=== PATIENT | female | born 1985 | race Caucasian/White ===

== ENCOUNTER 2021-09-10 13:48 | Emergency (ER) | payer OTHER, SELFPAY ==
[2021-09-10 14:05] VITALS: BP 125/86; PULSE 86; RESP 18; TEMP 36.5; O2SAT 100
--- NOTE | 2021-09-10 14:27 | ED.GENADULT ---
HPI - General Adult General Chief complaint: Upper Respiratory Infection Stated complaint: sorethroat,bodyaches History of Present Illness HPI narrative: 36 y/o female. PMHx Migraine Dx. Presents to [facility] today with acute complaints of sore throat and body aches for the past 48 hours. No fevers. No neck pain, stiffness. No DYSON, focal weakness. No cough, dyspnea. Denies GI upset, N/V/D. Client reports no known ill contacts. She notes a history of Streptococcal sore throat, and always starts this way . Related Data Home Medications Medication Instructions Recorded Confirmed duloxetine 60 mg capsule,delayed 60 mg PO DAILY 09/10/21 09/10/21 release gabapentin 300 mg capsule 300 mg BID 09/10/21 09/10/21 propranolol 20 mg tablet 20 mg BID 09/10/21 09/10/21 rizatriptan 5 mg disintegrating 5 mg DIRECTED 09/10/21 09/10/21 tablet Allergies Allergy/AdvReac Type Severity Reaction Status Date / Time No Known Allergies Allergy Verified 09/10/21 14:25 Review of Systems Review of Systems: CONSTITUTIONAL: Denies fever, chills, sweats. EYES: Denies visual changes, redness, discharge. ENT: Denies rhinorrhea, congestion, otalgia. Positive sore throat. CARDIOVASCULAR: Denies chest pain, palpitations, edema. RESPIRATORY: Denies dyspnea, wheezing, cough GASTROINTESTINAL: Denies abdominal pain, nausea, vomiting, diarrhea. GENITOURINARY: Denies dysuria, hematuria, abnormal discharge SKIN: Denies rash or itching. MUSCULOSKELETAL: Denies acute back pain, joint pain, or myalgia. NEUROLOGIC: Denies numbness, or focal weakness. PSYCHIATRIC: Denies anxiety or depression. Exam Narrative: GENERAL: This is a well-nourished, well-developed adult, in no apparent distress. HEAD: normocephalic, atraumatic. EYES: PERRL. Sclera clear/white. EARS: External ears normal, auditory canals clear and without drainage, TMs normal. NOSE: External nose normal. Positive Rhinorrhea, no obstruction, nares patent. THROAT: Mucous membranes moist, posterior pharynx is erythematous w/early exudative changes. No swelling. NECK: Neck supple, non-tender without lymphadenopathy, masses or thyromegaly. CARDIOVASCULAR: Regular rate and rhythm without murmurs, gallops, or rubs. RESPIRATORY: Clear to auscultation. Breath sounds equal bilaterally. No wheezes, rales, or rhonchi. No stridor. Able to tolerate oral secretions. GASTROINTESTINAL: Abdomen soft, non-tender, nondistended. Bowel sounds are active. No guarding. SKIN: warm, intact with no suspicious lesions or rash, good texture and turgor. NEURO: Alert, active, and age appropriate. No focal neurologic deficits. EXTREMITIES: Negative. Course Course Level of Care: Express Care Visit Vital Signs Vital signs: Vital Signs Temperature 36.5 C 09/10/21 14:05 Pulse Rate 86 09/10/21 14:05 Respiratory Rate 18 09/10/21 14:05 Blood Pressure 125/86 09/10/21 14:05 Pulse Oximetry 100 09/10/21 14:05 Oxygen Delivery Room Air 09/10/21 14:05 Temperature 36.5 C 09/10/21 14:05 Pulse Rate 86 09/10/21 14:05 Respiratory Rate 18 09/10/21 14:05 Blood Pressure 125/86 09/10/21 14:05 Pulse Oximetry 100 09/10/21 14:05 Oxygen Delivery Room Air 09/10/21 14:05 Medical Decision Making Differential Diagnosis Differential Diagnosis: Differential Diagnosis: Consideration of the following conditions may be warranted for the presenting problem, they are not final diagnoses: upper respiratory infection, otitis media, sinusitis, RSV viral infection, bronchitis, pharyngitis, Streptococcal sore throat, COVID-19, and other. Vital Signs Vital Signs: Vital Signs Temperature 36.5 C 09/10/21 14:05 Pulse Rate 86 09/10/21 14:05 Respiratory Rate 18 09/10/21 14:05 Blood Pressure 125/86 09/10/21 14:05 Pulse Oximetry 100 09/10/21 14:05 Oxygen Delivery Room Air 09/10/21 14:05 Temperature 36.5 C 09/10/21 14:05 Pulse Rate 86 09/10/21 14:05 Res
== END 2021-09-10 14:30 | disposition home or self-care (01) ==
PROVIDERS: Emergency Provider Nurse Practitioner Adult Health
DX: J02.9 Acute pharyngitis, unspecified (principal)
CPT/HCPCS: 99203; G0463

== ENCOUNTER 2023-08-02 10:30 | Emergency (ER) | payer OTHER, SELFPAY ==
--- NOTE | 2023-08-02 10:32 | ED.FEMALEGU ---
HPI - Female Genitourinary General Chief complaint: Urogenital-Female Stated complaint: UTI Time Seen by Provider: 08/02/23 10:31 Source: patient Mode of arrival: ambulatory Limitations: no limitations History of Present Illness HPI Narrative: Patient is a 38-year-old female presents with urinary urgency,frequency, pressure and burning urination for 2 days. Patient has taken azo. Denies any fever, chills, nausea, vomiting, diarrhea, low back pain. Patient reports frequent UTIs MD elicited complaint: dysuria Related Data Home Medications Medication Instructions Recorded Confirmed atogepant 60 mg tablet (Qulipta) 60 mg PO DAILY 08/02/23 08/02/23 atomoxetine 60 mg capsule 60 mg PO DAILY 08/02/23 08/02/23 estradiol 1.25 mg/1.25 gram (0.1 1 packet transdermal DAILY 08/02/23 08/02/23 %) transdermal gel packet (Divigel) fluvoxamine 150 mg 150 mg PO DAILY 08/02/23 08/02/23 capsule,extended release 24 hr gabapentin 300 mg capsule 300 mg PO TID 08/02/23 08/02/23 pramipexole 0.5 mg tablet 0.5 mg PO DAILY 08/02/23 08/02/23 sildenafil (pulm.hypertension) 20 20 mg PO DAILY 08/02/23 08/02/23 mg tablet Allergies Allergy/AdvReac Type Severity Reaction Status Date / Time No Known Allergies Allergy Verified 08/02/23 10:32 Review of Systems Review of Systems: All systems reviewed & are unremarkable except as noted in HPI and below Constitutional: Constitutional: Denies chills, Denies fever(s), Denies headache(s), Denies malaise and Denies weakness Eyes: Eyes: Denies change in vision, Denies eye discharge and Denies irritation ENT: Denies otalgia, Denies headache(s), Denies nasal congestion, Denies nasal discharge, Denies sinus pain and Denies sore throat Cardiovascular: Cardiovascular: Denies chest pain, Denies edema, Denies palpitations and Denies dyspnea Respiratory: Respiratory: Denies cough and Denies dyspnea Gastrointestinal: Gastrointestinal: Denies abdominal pain, Denies diarrhea, Denies nausea and Denies vomiting Genitourinary: Genitourinary: Denies hematuria, Reports nocturia, Reports dysuria, Denies flank pain and Reports urinary urgency Musculoskeletal: Musculoskeletal: Denies back pain and Denies numbness Integumentary/Breasts: Skin/Breast: Denies pruritus and Denies rash Neurologic: Denies headache(s), Denies numbness and Denies weakness Psychiatric: Psychiatric: Reports no additional psychiatric complaints Endocrine: Endocrine: Denies palpitations PMFSH Comments At time of signature, agree with nursing past medical, surgical, social and family history. There is no relevant family history pertinent to the presenting complaint. Exam Const: General: cooperative, healthy appearing, comfortable, no acute distress and well nourished Nutritional Appearance: well nourished Orientation/consciousness: patient oriented x3 HENMT: Head: normocephalic and atraumatic Ears: external ears normal Face/Nose/Sinus: Normal external nose present, Normal nares present and normal facial exam Face and sinus: normal facial exam Eyes: General: appearance normal, both eyes and all related structures Pupils: Equal, round and reactive pupils present EOM: EOMs intact bilaterally Neck: Neck: normal visual inspection, full ROM and supple Chest: Chest palpation & inspection: normal inspection of the chest Resp: Effort & Inspection: normal respiratory effort and able to speak in complete sentences Cardio: Rate: regular rate Rhythm: regular rhythm GI: Inspection: normal to inspection GI Palp: No abdominal tenderness and Yes Soft to palpation : General: Yes no CVA tenderness Back/Spine/Pelvis: Back: no CVA tenderness Skin: General skin exam: normal color and no rashes or lesions noted Neuro: General: patient oriented x3 and moves all extremities Cranial nerves: Yes Equal, round and reactive pupils present Extrem: General: normal to inspection and full ROM Psych: Appearance: grossly normal and well kempt Co
[2023-08-02 10:47] VITALS: BP 117/75; PULSE 65; RESP 16; TEMP 36.5; O2SAT 100
== END 2023-08-02 11:04 | disposition home or self-care (01) ==
PROVIDERS: Emergency Provider Nurse Practitioner Family
DX: N30.00 Acute cystitis without hematuria (principal); B96.20 Unspecified Escherichia coli [E. coli] as the cause of diseases classified elsewhere; F90.9 Attention-deficit hyperactivity disorder, unspecified type; G25.81 Restless legs syndrome; I73.00 Raynaud's syndrome without gangrene; Z98.84 Bariatric surgery status; Z86.16 Personal history of COVID-19
CPT/HCPCS: 81003; 87077; 87086; 87088; 87186; 99213; G0463

== ENCOUNTER 2023-08-10 12:53 | Emergency (ER) | payer OTHER, SELFPAY ==
--- NOTE | 2023-08-10 13:08 | ED.GENADULT ---
HPI - General Adult General Chief complaint: Urogenital-Female Stated complaint: yeast infection Time Seen by Provider: 08/10/23 13:08 Source: patient Mode of arrival: ambulatory Limitations: no limitations History of Present Illness HPI narrative: this 38-year-old female patient presents to the [facility] care with complaints itching, burning irritation and white vaginal discharge that started yesterday. Patient states the white vaginal discharge started this morning. Patient states she has been on Augmentin for a UTI and states that she is very sensitive to antibiotics and typically always gets vaginal yeast infections with antibiotics specifically more so with the Augmentin. Patient states that she only has 1 day left of antibiotics. Patient states she has no concerns for STIs at this time. Related Data Home Medications Medication Instructions Recorded Confirmed atogepant 60 mg tablet (Qulipta) 60 mg PO DAILY 08/02/23 08/10/23 atomoxetine 60 mg capsule 60 mg PO DAILY 08/02/23 08/10/23 estradiol 1.25 mg/1.25 gram (0.1 1 packet transdermal DAILY 08/02/23 08/10/23 %) transdermal gel packet (Divigel) fluvoxamine 150 mg 150 mg PO DAILY 08/02/23 08/10/23 capsule,extended release 24 hr gabapentin 300 mg capsule 300 mg PO TID 08/02/23 08/10/23 levonorgestrel 21 mcg/24 hr (up to See Rx Instructions .Route .COMPLEX 08/02/23 08/10/23 8 years) 52 mg intrauterine device (Mirena) pramipexole 0.5 mg tablet 0.5 mg PO DAILY 08/02/23 08/10/23 sildenafil (pulm.hypertension) 20 20 mg PO DAILY 08/02/23 08/10/23 mg tablet Allergies Allergy/AdvReac Type Severity Reaction Status Date / Time No Known Allergies Allergy Verified 08/10/23 13:21 Review of Systems Review of Systems: CONSTITUTIONAL: Denies fever, chills, or sweats. EYES: Denies visual changes, redness, or discharge. ENT: Denies rhinorrhea, congestion, sore throat, or otalgia. CARDIOVASCULAR: Denies chest pain, palpitations, or edema. RESPIRATORY: Denies cough or dyspnea. GASTROINTESTINAL: Denies abdominal pain, nausea, vomiting, or diarrhea. GENITOURINARY: Denies dysuria or hematuria. Positive burning, irritation, itching and white vaginal discharge x2 days SKIN: Denies rash or itching. MUSCULOSKELETAL: Denies back pain, joint pain, or myalgia. NEUROLOGIC: Denies headache, numbness, or weakness. PSYCHIATRIC: Denies anxiety or depression. PMFSH Comments At the time of my signature I agree with nursing past medical history, surgical, social, and family history. There is no relevant family history pertinent to the presenting complaint. Exam Narrative: GENERAL: Well-appearing, well-nourished, and in no acute distress. HEAD: Normocephalic, atraumatic. EYES: PERRLA and EOMI. ENT: Nares clear, no rhinorrhea or epistaxis. Mucous membranes moist. NECK: Supple. No lymphadenopathy CHEST: Clear to auscultation. No respiratory distress. HEART: Regular rate and rhythm. No murmur heard. Normal peripheral pulses. ABDOMEN: Soft, nontender, nondistended, normal active bowel sounds. no CVA tenderness on percussion EXTREMITIES: Normal range of motion. No edema. SKIN: Warm, dry, no rash. NEURO: No focal deficits. Alert and oriented x3. Course Course Level of Care: Express Care Visit Vital Signs Vital signs: Vital Signs Temperature 36.2 C L 08/10/23 13:22 Pulse Rate 84 08/10/23 13:22 Respiratory Rate 16 08/10/23 13:22 Blood Pressure 104/71 08/10/23 13:22 Pulse Oximetry 100 08/10/23 13:22 Oxygen Delivery Room Air 08/10/23 13:22 Temperature 36.2 C L 08/10/23 13:22 Pulse Rate 84 08/10/23 13:22 Respiratory Rate 16 08/10/23 13:22 Blood Pressure 104/71 08/10/23 13:22 Pulse Oximetry 100 08/10/23 13:22 Oxygen Delivery Room Air 08/10/23 13:22 Medical Decision Making MDM Narrative Medical decision making narrative: plan care patient is discharged home with fluconazole. Discussed with patient that she can take the
[2023-08-10 13:22] VITALS: BP 104/71; PULSE 84; RESP 16; TEMP 36.2; O2SAT 100
== END 2023-08-10 13:38 | disposition home or self-care (01) ==
PROVIDERS: Emergency Provider Nurse Practitioner Family; PCP Family Medicine
DX: B37.31 Acute candidiasis of vulva and vagina (principal); G25.81 Restless legs syndrome; I73.00 Raynaud's syndrome without gangrene; Z98.84 Bariatric surgery status; Z86.16 Personal history of COVID-19
CPT/HCPCS: 99213; G0463

== ENCOUNTER 2025-01-27 15:41 | Emergency (ER) | payer OTHER, SELFPAY ==
--- OUTSIDE RECORDS SUMMARY | 2023-08-03 15:30 | XMS_ITS ---
Author Organization [facility] [employer] [place] ([address]) Address [address] [place] [address] Care Team Providers Care Engineering Aid Name Role Phone Gabriel Desai Primary Care Provider UnavailDr. Krish Martin Unavailable [phone] Isaiah Donohue Unavailable Unavailable ZZ-M[facility], Provider Unavailable Unavailab le [facility] Encounter Medications Medication SIG (Take, Route, Frequency, Duration) Notes Start Date End Date Status Ubrelvy 100 MG 1 tab(s) orally 2 times a day; Duration: 30 days 07/24/2023 Active Qulipta 60 MG 1 tab(s) orally once a day; Duration: 30 days 05/29/2023 Active Pramipexole Dihydrochloride 0.5 MG 1 tab(s) orally nightly; Duration: 30 days 05/07/2023 Active Gabapentin 300 MG 1 in am, 2 in pm orally as directed Active Naltrexone HCl 50 MG 1.25 mg daily orall y once a day Active Viagra 25 MG 1 tab(s) orally once a day Active Strattera 60 MG 1 cap(s) orally once a day (in the morning) Active fluvoxaMINE Maleate 150 MG 1 CAP(S) ORALLY ONCE A DAY (AT BEDTIME) *Please review and pick correct strength-formulat ion from [employer] options. If intended option is not shown, discontinue and re-order from Quick Search* Active Cyclobenzaprine HCl 10 MG 1 tab(s) orally 3 times a day Active Progesterone 100 MG 1 INS intravaginally 3 times a day Active DIVIGEL 1.25 MG/PACKET 1.25 MG/1.25 G (0.1%) 1 EA TRANSDERMALLY ONCE A DAY *Please review for potential replacement for e-prescription and drug interaction check* Active Methocarbamol 500 MG 2 tab(s) orally 4 times a day Active Rizatriptan Benzoate 10 MG 1 tab(s) orally once a day Active Encounters Encounter Location Date Provider Diagnosis [address] [place] [address] 08/03/2023 Provider ZZ-Migration Plan Of Treatment Medication Medication Name Sig Start Date Stop Date Notes Ubrelvy 100 MG 1 tab(s) orally 2 ti mes a day; Duration: 30 days 07/24/2023 Progress Notes * Fabián MACKEYOB:[birth year] (39 yo F)Acc No.[id number]:08/03/2023 Patient: Jordan Livia CHILD Provider: Christopher clemons Migration :1985 A ge:38 Y S ex:Female Date:08/03/2023 Address:[address] [place] [address], [facility] Pcp:Gabriel Desai Subjective: * Chief Complaints: * 1 . [facility]. * Medical History: * Medications: T aking Rizatriptan Benzoate 10 MG Tablet 1 tab(s) orally once a day , Taking Methocarbamol 500 MG Tablet 2 tab(s) orally 4 times a day , Taking DIVIGEL 1.25 MG/PACKET 1.25 MG/1.25 G (0.1%) GEL 1 EA TRANSDERMALLY ONCE A DAY , Notes to Pharmacist: *Please review for potential replacement for e-prescription and drug interaction check*, Taking Viagra 25 MG Tablet 1 tab(s) orally once a day , Taking Progesterone 100 MG Insert 1 INS intravaginally 3 times a day , Taking Cyclobenzaprine HCl 10 MG Tablet 1 tab(s) orally 3 times a day , Taking fluvoxaMINE Maleate 150 MG CAPSULE, EXTENDED RELEASE 1 CAP(S) ORALLY ONCE A DAY (AT BEDTIME) , Notes to Pharmacist: *[facility]. If intended option is not shown, discontinue and re-order from Quick Search*, Taking Strattera 60 MG Capsule 1 cap(s) orally once a day (in the morning) , Taking Naltrexone HCl 50 MG Tablet 1.25 mg daily orally once a day , Taking Gabapentin 300 MG Capsule 1 in am, 2 in pm orally as directed , Taking Pramipexole Dihydrochloride 0.5 MG Tablet 1 tab(s) orally nightly , Taking Qulipta 60 MG Tablet 1 tab(s) orally once a day Objective: * Vitals: Assessment: Plan: * Treatment: * Billing Information: * Visit Code: * Procedure Codes: * Electronic signature of Tenisha SHETH-Migration on 01/27/2025 at 08:43 PM OUTGOING INSPECTOR Sign off status: Pending * Provider: Christopher clemons Migration Date: 0 08/03/2023 Generated for Brendon broussard/Nupur/Bao on: 1 03/30/2024 08:43 PM OUTGOING INSPECTOR
--- OUTSIDE RECORDS SUMMARY | 2023-08-27 11:30 | XMS_ITS ---
Author Organization [facility] [place] ([address]) Address [address] [place] [address] Care Team Providers Care Power Plant Technician Name Role Phone Gabriel Desai Primary Care Provider Dr. Krish Kirby Unavailable [phone] Isaiah Donohue Unavailable Unavailable REASON FOR VISIT Botox Only Encounters Encounter Location Date Provider Diagnosis [address] [address] 08/27/2023 Krish Diaz Plan Of Treatment No Information Progress Notes * Fabián MACKEYOB:[birth year] (39 yo F)Acc No.[id number]:08/27/2023 Botox Only Patient: Livia LYNN Provider: Devan Diaz MD :1985 A ge:38 Y S ex:Female Date:08/27/2023 Address:[address] [place] [address], [facility] Pcp:Gabriel Desai Subjective: * Chief Complaints: * 1 . Botox Only. * Medical History: Objective: * Vitals: Assessment: Plan: * Treatment: * Billing Information: * Visit Code: * Procedure Codes: * Electronic signature of Dr. Krish Diaz MD on 01/27/2025 at 08:39 PM CONTINUOUS PICKLING LINE PICKLER HELPER Sign off status: Pending * Provider: Devan Diaz MD Date: 0 08/27/2023 Generated for Brendon broussard/Nupur/Jessicaitting on: 1 03/30/2024 08:39 PM CONTINUOUS PICKLING LINE PICKLER HELPER
--- OUTSIDE RECORDS SUMMARY | 2024-02-25 11:30 | XMS_ITS ---
Author Organization [facility] ([address]) Address [address] [place] [address] Care Team Providers Care Diamond Sorter Name Role Phone Gabriel Desai Primary Care Provider Dr. Krish Kirby Unavailable [phone] Isaiah Donohue Unavailable Unavailable Kalpana Tabares Unavailable [phone] REASON FOR VISIT Botox F/U Encounters Encounter Location Date Provider Diagnosis [address] [address] 02/25/2024 Kalpana Tabares Plan Of Treatment No Information Progress Notes * GRACEArethaFabián DORSEYOB:[birth year] (39 yo F)Acc No.[id number]:02/25/2024 Progress Notes Patient: Jordan HOOVERLivia DORSEY Provider: Michael Tabares APRN :1985 A ge:39 Y S ex:Female Date:02/25/2024 Address:[address] [place] [address], [facility] Pcp:Gabriel Desai Subjective: * Chief Complaints: * 1 . Botox F/U. * Medical History: Objective: * Vitals: Assessment: Plan: * Treatment: * Billing Information: * Visit Code: * Procedure Codes: * Electronic signature of CHERYL Rojas on 01/27/2025 at 08:38 PM FORKLIFT WHEEL LOADER Sign off status: Pending * Provider: Michael Tabares APRN Date: 0 02/25/2024 Generated for Brendon broussard/Nupur/Bao on: 1 03/30/2024 08:38 PM FORKLIFT WHEEL LOADER
--- OUTSIDE RECORDS SUMMARY | 2024-03-03 11:30 | XMS_ITS ---
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 Krish Martin Unavailable [phone] Isaiah Donohue Unavailable Unavailable Kalpana Tabares Unavailable [phone] Allergies No Known Allergies REASON FOR VISIT Botox BB Only Medications Medication SIG (Take, Route, Frequency, Duration) Notes Start Date End Date Status Methocarbamol 500 MG 2 tab(s) orally 4 times a day Active DIVIGEL 1.25 MG/PACKET 1.25 MG/1.25 G (0.1%) 1 EA TRANSDERMALLY ONCE A DAY *Please review for potential replacement for e-prescription and drug interaction check* Active Viagra 25 MG 1 tab(s) orally once a day Active Progesterone 100 MG 1 INS intravaginally 3 times a day Active Cyclobenzaprine HCl 10 MG 1 tab(s) orally 3 times a day Active Rizatriptan Benzoate 10 MG 1 tab(s) orally once a day Active GABAPENTIN 300 mg 1 in am, 2 in pm orally as directed Active PRAMIPEXOLE DIHYDROCHLORIDE 0.5 mg 1 tab(s) orally nightly; Duration: 30 days 05/07/2023 Active QULIPTA 60 mg 1 tab(s) orally once a day; Duration: 30 days 05/29/2023 Active UBRELVY 100 mg 1 tab(s) orally 2 times a day; Duration: 30 days As needed for migraine 07/24/2023 Active NALTREXONE 50 mg 1.25 mg daily orally once a day Active PROGESTERONE 100 mg 1 INS intravaginally 3 times a day Active CYCLOBENZAPRINE 10 mg 1 tab(s) orally 3 times a day Active FLUVOXAMINE 150 mg 1 cap(s) orally once a day (at bedtime) Active STRATTERA 60 mg 1 cap(s) orally once a day (in the morning) Active VIAGRA 25 mg 1 tab(s) orally once a day Active RIZATRIPTAN 10 mg 1 tab(s) orally once a day Active Qulipta 60 MG 1 tab(s) orally once a day; Duration: 30 days 05/29/2023 Active Ondansetron 4 MG 1 tab Orally Once a day; Duration: 30 days As needed 08/27/2023 Active METHOCARBAMOL 500 mg 2 tab(s) orally 4 times a day Active Gabapentin 300 MG 1 in am, 2 in pm orally as directed Active Pramipexole Dihydrochloride 0.5 MG 1 tab(s) orally nightly; Duration: 30 days 05/07/2023 Active Ubrelvy 100 MG 1 tab(s) orally 2 times a day; Duration: 30 days 07/24/2023 Active Strattera 60 MG 1 cap(s) orally once a day (in the morning) Active Naltrexone HCl 50 MG 1.25 mg daily orall y once a day Active fluvoxaMINE Maleate 150 MG 1 CAP(S) ORALLY ONCE A DAY (AT BEDTIME) *Please review and pick correct strength-formulat ion from elenian options. If intended option is not shown, discontinue and re-order from Quick Search* Active Social History Tobacco Use: Social History Observation Description Date Details (start date - stop date) Former Smoker NA - NA Smoking Smart Form: Question Answer Notes Are you a: former smoker Additional Findings:Tobacco Non-User Ex-moderate cigarette smoker (10-19/day) Problems Problem Type SNOMED Code ICD Code Onset Dates Problem Status W/U Status Risk Notes Problem Migraine with aura (3044193) Migraine with aura, not intractable, without status migrainosus (G43.109) Active confirmed Problem Chronic migraine without aura, non-refractor y (disorder) ([id number] 100) Migraine without aura, not intractable, without status migrainosus (G43.009) Active confirmed Encounters Encounter Location Date Provider Diagnosis [facility] [address] [place] [address] 03/03/2024 Kalpana Tabares Chronic migraine without aura, not intractable, without status migrainosus G43.709 Assessments Encounter Date Diagnosis (ICD Code) Assessment Notes Treatment Notes Treatment Clinical Notes Section Notes 03/03/2024 Chronic migraine without aura, not intractable, without status migrainosus (ICD-10 - G43.709) Plan Of Treatment Next Appt Details Follow Up: 3 Months, Reason: Evaluation and Management. Toxin injection Progress Notes * Say MACKEYleDOB:[birth year] (39 yo F)Acc No.[id number]:03/03/2024 Progress Notes Patient: Livia LYNN Provider: Michael Tabares APRN :1985 A ge:39 Y S ex:Female Date:03/03/2024 Address:[address] [place] [address], [facility] Pcp:Gabriel Desai Subjective: * Chief Complaints: * 1 . Botox BB Only. * HPI: * Introduction: HPI: N ayannaroberto Key, who presented for Botox injection. * Initial History: INITIAL VISIT HISTORY: She is a 38 year old woman with a history obesity s/p bariatric surgery, h/o premature ovarian failure, chronic TMJ, chronic migraine. Headache History: -Headache Onset: Mid-20s. -Headache Description: Prodrome: Worsening of tinnitus, scalp tingling. Aura: Sees spots in her periphery prior to migraine. Headache phase: Bilateral temporal, rarely unilateral, throbbing pain up to severe pain, worsened with movement/activity with preference to lie down, associated with light sensitivity, associated with nausea, associated with blurry vision, can last hours to all day or even > 24 hours-He -Headache Triggers: Stress, weather changes (barometric pressure change), hormone changes (e.g. menstrual cycle), under sleeping, bright or flashing lights -Headache Frequency: The patient is currently experiencing 20 Headache days/month and 20 Migraine days/month. She has had this frequency for the last 3 months, prior to this was about 8-10 days/month with headache. * Previous Impression & Plan: Notes P revious Diagnoses: 1 . Chronic migraine without aura, not intractable, without status migrainosus - G43.709 (Primary) 2 . Drug-induced headache, not elsewhere classified, not intractable - G44.40 3 . Restless legs syndrome - G25.81 P revious Recommendations: 1 . Abortive: Ubrelvy 100 mg. Preventive: Samples of Qulipta 60 mg. Recommend treatment with botulinum toxin for preventive therapy. Recommend adding masseter injections. PA for Xeomin. Patient meets criteria for chronic migraine with > 15 headache days/month and > 8 migraine days per month, and has failed > 2 standard preventives and is therefore a good candidate for treatment with botulinum toxin. 2 . Educated patient regarding medication overuse headaches. Advised to avoid taking NSAIDs or acetaminophen > 15 days/month, triptans or DHE > 10 days/month, butalbital > 10 days/month to avoid rebound headaches. 3 . Continue iron supplementation. Continue gabapentin. Stop ropinirole, change to pramipexole 0.5 mg nightly.. * Interval History: Notes P harmacologic Treatment: - Current abortive therapy: Ubrelvy 100 mg (reliably effective) - Previous failed abortive therapy: Rizatriptan 10 mg (used to work, now only partially effective and not reliable), Sumatriptan (inadequate effect; side effects) - Current preventive therapy: Botox, Qulipta, Gabapentin (on for RLS; has not helped migraines). - Previous failed preventive therapy: Emgality (took for 1 year; initially helped, then stopped working), Topiramate (took for 6 months; inadequate effect and side effects), Propranolol (side effects; low blood pressure); Venlafaxine (ineffective, took for > 2 months), Duloxetine (ineffective, took > 2 months), Botox (single injection, had temporary ptosis, and didn't want to continue treatment; so had inadequate trial) - Medication overuse: Not present - Other modalities: Acupressure/acupuncture, Physical Therapy, Chiropractic H eadache Frequency: I nitial/baseline headache/migraine days/month:30/30 L ast visit headache/migraine days/month:15 (less intense and of less duration than before on these days)/4 (on Qulipta+Botox) C urrent headache/migraine days/month: / H eadache Scales: H IT-6: Current score: . Prior score: 65 I nterval History: L ast visit was on 11/19/2023 for Botox injection.. * Headache: Last injection on 11/19/23: Procerus 5 Units, Land Acquisition Manager (Left) 5 Units, Land Acquisition Manager (Right) 5 Units, Frontalis (Left) 12.5 Units, Frontalis (Right) 12.5 Units, Temporalis (Left) 25 Units, Temporalis (Right) 25 Units, Occipitalis (Left) 20 Units, Occipitalis (Right) 20 Units, Cervical Paraspinal (Left) 10 Units, Cervical Paraspinal (Right) 10 Units, Trapezius (Left) 15 Units, Trapezius (Right) 15 Units, Masseter (Left) 10 Units, Masseter (Right) 10 Units. * ROS: A LLERGY: runny nose Y es. s cratchy throat Y es. i tchy eyes Y es. e ar fullness Y es. s inus congestion Y es. D enies all N o.? S PECIAL SENSES: cataracts N o. g laucoma N o. l oss of hearing?No. i tching in ears N o. r inging in ears Y es. l oss of balance Y es.?loss of smell N o. d ry eyes N o. e xcessive tearing Y es. i tching eyes Y es. l oss of taste N o. c onjunctivitis N o. e ar infections N o.? C ONSTITUTIONAL: night sweats Y es. w eight gain N o. l oss of appetite Y es. f ever N o. w eakness Y es. w eight loss N o. f atigue?Yes. E NT: cold N o. c ough N o. e pistaxis N o. h earing loss N o. c hange in voice N o. s ore throat Y es. r inging in ears?Yes. s inus pain Y es. R ESPIRATORY: shortness of breath N o. c hest pain N o. c hest congestion Y es. c ough Y es. O PHTHALMOLOGY: itching Y es. s ensitivity to light Y es. d ischarge N o. w atering Y es. s welling of the eyelids Y es. r edness Y es.?diminished vision Y es. e ye irritation Y es. d rainage from eyes N o. blurring of vision Y es. s easonal eye sx N o. l oss of vision N o. E NDOCRINOLOGY: fatigue Y es. p olydipsia N o. p olyuria N o. w eight loss N o. s leep disturbance Y es. c old intolerance Y es. h eat intolerance N o. d iabetes N o. C ARDIOLOGY: dizziness Y es. c hest pain N o. p alpitations?No. l eg edema N o. s hortness of breath N o. G ASTROENTEROLOGY: nausea Y es. i ndigestion N o. h emorrhoids?No. v omiting N o. d ysphagia N o. a bdominal pain Y es. d iarrhea?No. c onstipation N o. b lood in stool N o. U ROLOGY: difficulty urinating N o. b lood in urine N o. f requent urination N o. u rinary incontinence N o. v oiding dysfunction N o.?recurrent UTI Y es. D ERMATOLOGY: rash N o. m ole Y es. l umps N o. d ry or sensitive skin Y es. h kizzy (urticaria) Y es. a cne N o. s kin cancer?No. N EUROLOGY: headache Y es. t ingling numbness Y es. s eizures N o. i nsomnia Y es. m gita loss N o. d izziness Y es. g ait abnormality N o. H EMATOLOGY/LYMPH: Positive for n one. M USCULOSKELETAL: gout N o. j oint stiffness Y es. l eg cramps?No. j oint pain Y es. j oint swelling N o. s ciatica Y es. o steoporosis N o. f racture Y es. c arpal tunnel Y es. P SYCHOLOGY: depression Y es. h igh stress level Y es. s leep disturbances Y es. s uicidal ideation N o. e ating disorder Y es. m ental or physical abuse Y es. a nxiety Y es. F EMALE REPRODUCTIVE: Are you ? N o. A re you planning on a future pregancy? N o. h eavy periods N o. s exually active Y es. i nfertility Y es. f requent yeat infections N o. p elvic pain N o. b reast pain N o. n ipple discharge N o. a bnormal vaginal discharge N o. h ot flashes Y es. ? * Medical History: M igraine, Depression, Obesity, Premature ovarian failure, TMJ, Lumbar DDD. * Surgical History: G astric bypass 09/29/2021, Jaw arthrocentesis 05/19/2022, Jaw arthrocentesis 02/18/2021, Jaw arthrocentesis 09/18/2020, Knee meniscus repair 01/07/2009, Tonsil and andoids 04/18/2006, [place] teeth removal 04/18/2005. 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 * Family History: F ather: Yes. M other: Yes. P aternal Grand Father: Yes. P aternal Grand Mother: Yes. M aternal Grand Father: No. M aternal Grand Mother: Yes. P aternal uncle: Yes. S iblings: Yes. C hildren: Yes. * Social History: M arital Status What is your marital status? m arried A lcohol Screening Do you ever drink alcoholic beverages? Y es Number of drinks per occasion: 1 Frequency? W eekly C affeine: Yes. S moking Have you ever smoked tobacco: f ormer smoker Additional Findings: Tobacco Non-User E x-heavy cigarette smoker (20-30/day) How old were you when you started smoking? 1 2 How old were you when you quit smoking? 3 0 How many cigarettes a day did you smoke? l ess than 5 Are you a : f ormer smoker S moking Smart Form Are you a: f ormer smoker Additional Findings:Tobacco Non-User E x-moderate cigarette smoker (10-19/day) R ecreational drug use Have you ever used recreational drugs? Y es What kind of drugs? m arijuana D etails on consumption of certain products? Do you regularly consume products with aspartame; Equal or NutraSweet? Y es Do you regularly consume products with artificial coloring??Yes Have you ever noticed worsening of your rash with these food items? N o E xercise What kind(s) of exercise do you perform regularly? w alking,yoga How often do you perform this exercise? w eekly A re any of the following personal care products containing fragrance, dye or preservatives used regularly? Shampoo: Y es Conditioner: Y es Soap: N o Laundry Detergent: N o Fabric Softener: N o Deodorant: Y es Perfume, cologne, after shave: N o Air freshners or other scented products: Y es Hair coloring dyes or rinses: Y es Other: N o O ccupation Are you currenly employed? N o Have you had any job with high exposure to fumes, chemicals, dust or other noxious substances? N o Are you currently a student? Y es How much school have you missed due to breathing difficulty within the past year? 1 or 2 days Please describe the effect of your illness on your school performance: p oor concentration,poor performance E nvironmental History Living environment: p rivate home Where is the home located? [place] Age of home: 3 0 How long have you lived there? 2 -4 years How many people live in the home? 9 H ome description Basement: Y es Any water damage in basement? N o Smokers in the home? N o Smokers outside the home? N o Air Conditioning? Y es Central Air? Y es Forced air heating? Y es Gas or electric? g as Fireplace? Y es Used how often? w inter months only Wood burning stove? N o Do you vacuum the home? Y es Air purification systems? Y es Is it a HEPA (high-efficiency particulate air filter)? Y es Ionizer on air purification system? Y es Pillow and mattress dust-proof encasings? N o Do you use a humidifier? Y es Whole house or room? r oom humidifier Does it have a humidistat? Y es Is it used year-round, seasonal, or as needed? a s needed Is the humidifier cleaned regularly? Y es Do you own any pets? Y es What kind(s)? (click all that apply) c ats,dog,fish,guinea pig,rat Where do your pets sleep? b edroom Fabric softeners used? Y es Plants in the home? Y es How many? 2 0 Where are they kept? y our room,kitchen,outside Is there carpeting in your bedroom? Y es Age of carpet? 3 Do you have bfea-aa-cksp carpeting? Y es What is the age of your carpeting? 3 What is the age of your mattress (years)? 2 What material(s) are used to manufacture your bedding and pillow? s ynthetic What is the age of your pillow (years)? 2 What material are your bedding items made of? s ynthetic,natural fiber (e.g. cotton) Do you sleep with quilts or blankets or a duvet? Y es What material? n atural fiber (e.g. cotton) How many cats? 3 How many dogs? 1 How many fish? 5 How many guinea pigs? 2 How many rats? 4 * Medications: T manpreet RIZATRIPTAN 10 mg tablet 1 tab(s) orally once a day , Taking METHOCARBAMOL 500 mg tablet 2 tab(s) orally 4 times a day , Taking VIAGRA 25 mg tablet 1 tab(s) orally once a day , Taking PROGESTERONE 100 mg insert 1 INS intravaginally 3 times a day , Taking CYCLOBENZAPRINE 10 mg tablet 1 tab(s) orally 3 times a day , Taking FLUVOXAMINE 150 mg capsule, extended release 1 cap(s) orally once a day (at bedtime) , Taking STRATTERA 60 mg capsule 1 cap(s) orally once a day (in the morning) , Taking NALTREXONE 50 mg tablet 1.25 mg daily orally once a day , Taking GABAPENTIN 300 mg capsule 1 in am, 2 in pm orally as directed , Taking PRAMIPEXOLE DIHYDROCHLORIDE 0.5 mg tablet 1 tab(s) orally nightly , Taking QULIPTA 60 mg tablet 1 tab(s) orally once a day , Taking UBRELVY 100 mg tablet 1 tab(s) orally 2 times a day As needed for migraine, Taking Rizatriptan Benzoate 10 MG Tablet 1 tab(s) [...] *Please review and pick correct strength-formulation from Win[employer]er options. If intended option is not shown, [...] Tablet 1 tab(s) orally nightly , Taking Ubrelvy 100 MG Tablet 1 tab(s) orally 2 times a day , Taking Qulipta 60 MG Tablet 1 tab(s) orally once a day , Taking Ondansetron 4 MG Tablet Disintegrating 1 tab Orally Once a day As needed * Allergies: N .K.D.A. Objective: * Vitals: * Examination: G eneral examination: General appearance: P leasant, well-developed, no distress.? HEENT: P upils equal, round and reactive to light. No conjunctival injection. No tenderness to palpation over the maxillary sinuses. No turbinate hypertrophy. Tympanic membranes appear normal. No oral lesions. No tenderness over the occipital notch bilaterally. Oral cavity: N ormal, no lesions. Neck, thyroid : S upple, non-tender, no anterior cervical lymphadenopathy. Breasts : N ot performed. Heart: R RR, S1-S2, no murmurs, no rubs, no gallops. Lungs: C lear to auscultation and percussion in all lung boswell. Abdomen: S oft, NT/ND, normal active bowel sounds. Neurologic exam: A lert and oriented x 4. Fluent speech. Intact recall, fund of knowledge. Appropriate affect. PERRL. EOMI without nystagmus. No visual field cut. Facial sensation intact to light touch and pinprick in bilateral V1/V2/V3. Facial movements normal and symmetric. Hearing intact to finger rub bilaterally. Palate symmetrically upgoing. Tongue midline. Motor 5/5 strength in all extremities. Reflexes 2+/2 and symmetric in all extremities. Bilateral flexor plantar responses. Sensory exam intact to light touch, pinprick, vibration, and proprioception in all extremities. Cerebellar testing no ataxia or dysmetria. Gait normal, negative Romberg, intact tandem. Skin: N ormal, no rash, urticaria, angioedema. Peripheral pulses: n ormal (2+) bilaterally. Back: N o cervical or periscapular trigger points. Normal cervical and lumbar ROM. Extremities: N ormal ROM, no clubbing, no cyanosis, no edema. Genitalia: N ot performed. Assessment: * Assessment: 1. C hronic migraine without aura, not intractable, without status migrainosus - G43.709 (Primary) Plan: * Treatment: * Procedure Codes: 6 4615 CHEMODENERV MUSC MIGRAINE, J0585 BOTULINUM TOXIN TYPE A PER UNIT, J0585 BOTULINUM TOXIN TYPE A PER UNIT, Modifiers: HANNAH , 11467 PT-FOCUSED HLTH RISK ASSMT, G8427 DOC MEDS VERIFIED W/PT OR RE, G2211 Complex e/m visit add on * Follow Up: 3 Months (Reason: Evaluation and Management. Toxin injection) * Billing Information: * Visit Code: 93816 Office Visit, Est Pt., Level 4. Modifiers: 213 Office Visit, Est Pt., Level 3. Modifiers: 215 Office Visit, Est Pt., Level 5. Modifiers: 25 * Procedure Codes: 85576 CHEMODENERV MUSC MIGRAINE. J0585 BOTULINUM TOXIN TYPE A PER UNIT. J0585 BOTULINUM TOXIN TYPE A PER UNIT. Modifiers: HANNAH 68512 PT-FOCUSED HLTH RISK ASSMT. G8427 DOC MEDS VERIFIED W/PT OR RE. G2211 Complex e/m visit add on. * Electronic signature of CHERYL Rojas on 01/27/2025 at 08:40 PM SCHOOL SPEECH THERAPIST Sign off status: Pending * Provider: Michael Tabares APRN Date: 0 03/03/2024 Generated for Brendon broussard/Nupur/eTransmitting on: 1 03/30/2024 08:40 PM SCHOOL SPEECH THERAPIST History and Physical Notes * HPI (History of Present Illness) Category Sub-Category Detail Notes Category Notes *Introduction HPI: Livia Mckinney-Ther os, who presented for Botox injection *Headache Last injection on 11/19/23: Procerus 5 Units, Land Acquisition Manager (Left) 5 Units, Land Acquisition Manager (Right) 5 Units, Frontalis (Left) 12.5 Units, Frontalis (Right) 12.5 Units, Temporalis (Left) 25 Units, Temporalis (Right) 25 Units, Occipitalis (Left) 20 Units, Occipitalis (Right) 20 Units, Cervical Paraspinal (Left) 10 Units, Cervical Paraspinal (Right) 10 Units, Trapezius (Left) 15 Units, Trapezius (Right) 15 Units, Masseter (Left) 10 Units, Masseter (Right) 10 Units *Initial History INITIAL VISIT HISTORY: She is a 38 year old woman with a history obesity s/p bariatric surgery, h/o premature ovarian failure, chronic TMJ, chronic migraine. Headache History: -Headache Onset: Mid-20s. -Headache Description: Prodrome: Worsening of tinnitus, scalp tingling. Aura: Sees spots in her periphery prior to migraine. Headache phase: Bilateral temporal, rarely unilateral, throbbing pain up to severe pain, worsened with movement/activity with preference to lie down, associated with light sensitivity, associated with nausea, associated with blurry vision, can last hours to all day or even > 24 hours-He -Headache Triggers: Stress, weather changes (barometric pressure change), hormone changes (e.g. menstrual cycle), under sleeping, bright or flashing lights -Headache Frequency: The patient is currently experiencing 20 Headache days/month and 20 Migraine days/month. She has had this frequency for the last 3 months, prior to this was about 8-10 days/month with headache *Previous Impression & Plan Notes Previous Diagnoses:1. Chroni c migraine without aura, not intractable, without status migrainosus - G43.709 (Primary)2. Drug-induced headache, not elsewhere classified, not intractable - G44.403. Restless legs syndrome - G25.81Previous Recommendations:1. Abortive: Ubrelvy 100 mg. Preventive: Samples of Qulipta 60 mg. Recommend treatment with botulinum toxin for preventive therapy. Recommend adding masseter injections. PA for Xeomin. Patient meets criteria for chronic migraine with > 15 headache days/month and > 8 migraine days per month, and has failed > 2 standard preventives and is therefore a good candidate for treatment with botulinum toxin.2. Educated patient regarding medication overuse headaches. Advised to avoid taking NSAIDs or acetaminophen > 15 days/month, triptans or DHE > 10 days/month, butalbital > 10 days/month to avoid rebound headaches. 3. Continue iron supplementation. Continue gabapentin. Stop ropinirole, change to pramipexole 0.5 mg nightly. *Interval History Notes Pharmacologic Treatment:-Cur rent abortive therapy: Ubrelvy 100 mg (reliably effective)-Previous failed abortive therapy: Rizatriptan 10 mg (used to work, now only partially effective and not reliable), Sumatriptan (inadequate effect; side effects)-Current preventive therapy: Botox, Qulipta, Gabapentin (on for RLS; has not helped migraines).-Previous failed preventive therapy: Emgality (took for 1 year; initially helped, then stopped working), Topiramate (took for 6 months; inadequate effect and side effects), Propranolol (side effects; low blood pressure); Venlafaxine (ineffective, took for > 2 months), Duloxetine (ineffective, took > 2 months), Botox (single injection, had temporary ptosis, and didn't want to continue treatment; so had inadequate trial)-Medication overuse: Not present-Other modalities: Acupressure/acupuncture, Physical Therapy, ChiropracticHeadache Frequency:Initial/baseline headache/migraine days/month: /30Last visit headache/migraine days/month:15 (less intense and of less duration than before on these days)/4 (on Qulipta+Botox)Current headache/migraine days/month: /Headache Scales:HIT-6: Current score: . Prior score: 65Interval History:Last visit was on 11/19/2023 for Botox injection. Examination Category Sub-Category Detail Notes Category Not es General examination HEENT: Pupils equal , round and reactive to light. No conjunctival injection. No tenderness to palpation over the maxillary sinuses. No turbinate hypertrophy. Tympanic membranes appear normal. No oral lesions. No tenderness over the occipital notch bilaterally Neck, thyroid : Supple, non-tender, no anterior cervical lymphadenopathy Heart: RRR, S1-S2, no murmu rs, no rubs, no gallops Lungs: Clear to auscultatio n and percussion in all lung boswell Abdomen: Soft, NT/ND, normal active bowel sounds Extremities: Normal ROM, no clubb ing, no cyanosis, no edema General appearance: Pleasant, well-devel oped, no distress Skin: Normal, no rash, urt icaria, angioedema Neurologic exam: Alert and oriented x 4. Fluent speech. Intact recall, fund of knowledge. Appropriate affect. PERRL. EOMI without nystagmus. No visual field cut. Facial sensation intact to light touch and pinprick in bilateral V1/V2/V3. Facial movements normal and symmetric. Hearing intact to finger rub bilaterally. Palate symmetrically upgoing. Tongue midline. Motor 5/5 strength in all extremities. Reflexes 2+/2 and symmetric in all extremities. Bilateral flexor plantar responses. Sensory exam intact to light touch, pinprick, vibration, and proprioception in all extremities. Cerebellar testing no ataxia or dysmetria. Gait normal, negative Romberg, intact tandem Oral cavity: Normal, no lesions Breasts : Not performed Peripheral pulses: normal (2+) bilatera lly Back: No cervical or peris capular trigger points. Normal cervical and lumbar ROM Genitalia: Not performed
--- OUTSIDE RECORDS SUMMARY | 2024-03-10 11:30 | XMS_ITS ---
Author Organization [facility] ([address]) Address [address] [place] [address] Care Team Providers Care Yarding Supervisor Name Role Phone Gabriel Desai Primary Care Provider Dr. Krish Kirby Unavailable [phone] Isaiah Donohue Unavailable Unavailable Kalpana Tabares Unavailable [phone] REASON FOR VISIT Botox BB Follow Up Encounters Encounter Location Date Provider Diagnosis [address] [address] 03/10/2024 Kalpana Tabares Plan Of Treatment No Information Progress Notes * GRACE-Fabián DORSEYOB:[birth year] (39 yo F)Acc No.[id number]:03/10/2024 Progress Notes Patient: Jordan HOOVERSUNITA Livia Provider: Michael Tabares APRN :1985 A ge:39 Y S ex:Female Date:03/10/2024 Address:[address] [place] [address], [facility] Pcp:Gabriel Desai Subjective: * Chief Complaints: * 1 . Botox BB Follow Up. * Medical History: Objective: * Vitals: Assessment: Plan: * Treatment: * Billing Information: * Visit Code: * Procedure Codes: * Electronic signature of CHERYL Rojas on 01/27/2025 at 08:41 PM ORACLE SOA DEVELOPER Sign off status: Pending * Provider: Michael Tabares APRN Date: 0 03/10/2024 Generated for Brendon broussard/Nupur/Bao on: 1 03/30/2024 08:41 PM ORACLE SOA DEVELOPER
--- OUTSIDE RECORDS SUMMARY | 2024-03-17 11:30 | XMS_ITS ---
Author Organization [facility] [employer] [facility] [place] ([address]) Address [address] [place] [address] Care Team Providers Care Satellite Dish Repairer Name Role Phone Gabriel Desai Primary Care Provider UnavailDr. Krish Martin Unavailable [phone] Isaiah Donohue Unavailable Unavailable Kalpana Tabares Unavailable [phone] Allergies No Known Allergies REASON FOR VISIT Botox BB Only Medications Medication SIG (Take, Route, Frequency, Duration) Notes Start Date End Date Status Rizatriptan Benzoate 10 MG 1 tab(s) orally once a day Active Methocarbamol 500 MG 2 tab(s) orally 4 times a day Active DIVIGEL 1.25 MG/PACKET 1.25 MG/1.25 G (0.1%) 1 EA TRANSDERMALLY ONCE A DAY *Please review for potential replacement for e-prescription and drug interaction check* Active Viagra 25 MG 1 tab(s) orally once a day Active Progesterone 100 MG 1 INS intravaginally 3 times a day Active GABAPENTIN 300 mg 1 [...] mg daily orally once a day Active VIAGRA 25 mg 1 tab(s) orally once a day Active PROGESTERONE 100 mg 1 INS intravaginally 3 times a day Active CYCLOBENZAPRINE 10 mg 1 tab(s) orally 3 times a day Active FLUVOXAMINE 150 mg 1 cap(s) orally once a day (at bedtime) Active STRATTERA 60 mg 1 cap(s) orally once a day (in the morning) Active METHOCARBAMOL 500 mg 2 tab(s) orally 4 times a day Active Ubrelvy 100 MG 1 tab(s) orally 2 times a day; Duration: 30 days 07/24/2023 Active Qulipta 60 MG 1 tab(s) orally once a day; Duration: 30 days 05/29/2023 Active Ondansetron 4 MG 1 tab Orally Once a day; Duration: 30 days As needed 08/27/2023 Active RIZATRIPTAN 10 mg 1 tab(s) orally once a day Active Strattera 60 MG 1 cap(s) orally once a day (in the morning) Active Naltrexone HCl 50 MG 1.25 mg daily orall y once a day Active Gabapentin 300 MG 1 in am, 2 in pm orally as directed Active Pramipexole Dihydrochloride 0.5 MG 1 tab(s) orally nightly; Duration: 30 days 05/07/2023 Active fluvoxaMINE Maleate 150 MG 1 CAP(S) ORALLY ONCE A DAY (AT BEDTIME) *Please review and pick correct strength-formulat ion from [employer] options. If intended option is not shown, discontinue and re-order from Quick Search* Active Cyclobenzaprine HCl 10 MG 1 tab(s) orally 3 times a day Active Social History Tobacco Use: Social History Observation Description Date Details (start date - stop date) Former Smoker NA - NA Smoking Smart Form: Question Answer Notes Are you a: former smoker Additional Findings:Tobacco Non-User Ex-moderate cigarette smoker (10-19/day) Encounters Encounter Location Date Provider Diagnosis [facility] [address] [address] 03/17/2024 Kalpana Tabares Chronic migraine without aura, not intractable, without status migrainosus G43.709 ; Drug-induced headache, not elsewhere classified, not intractable G44.40 and Restless legs syndrome G25.81 Assessments Encounter Date Diagnosis (ICD Code) Assessment Notes Treatment Notes Treatment Clinical Notes Section Notes 03/17/2024 Chronic migraine without aura, not intractable, without status migrainosus (ICD-10 - G43.709) 03/17/2024 Drug-induced headache, not elsewhere classified, not intractable (ICD-10 - G44.40) 03/17/2024 Restless legs syndrome (ICD-10 - G25.81) Plan Of Treatment Next Appt Details Follow Up: 3 Months, Reason: Evaluation and Management. Toxin injection Progress Notes * Say MACKEYMellyOB:[birth year] (39 yo F)Acc No.[id number]:03/17/2024 Progress Notes Patient: Livia LYNN Provider: Michael Tabares APRN :1985 A ge:39 Y S ex:Female Date:03/17/2024 Address:[address] [place] [address], [facility] Pcp:Gabriel Desai Subjective: * Chief Complaints: * 1 . Botox BB Only. * HPI: * Introduction: HPI: N sergei Mackey, who presented for Botox injection. * Initial History: INITIAL VISIT HISTORY: She is a 38 year old woman with a history obesity s/p bariatric surgery, h/o premature ovarian failure, chronic TMJ, chronic migraine. Headache History: -Headache Onset: Mid-20s.-Headache Description: Prodrome: Worsening of tinnitus, scalp tingling. [...] ropinirole, change to pramipexole 0.5 mg nightly. * Interval History: Notes P harmacologic Treatment: [...] to continue treatment; so had inadequate trial) M edication overuse: Present - Takes Tylenol at least 5 days/week, as well as rizatriptan. O ther modalities: Acupressure/acupuncture, Physical Therapy, Chiropractic H eadache Frequency: I nitial/baseline headache/migraine days/month(prior to Botox): 30/30 P rior h eadache/migraine days/month (on Qulipta before Botox): 20/15 L ast visit headache/migraine days/month(on Qulipta+Botox):15 (less intense and of less duration than before on these days)/4 C urrent headache/migraine days/month: / H eadache Scales: H IT-6: Current score: . Prior score: 65 I nterval History: L ast visit was on 11/19/2023 for Botox injection.. * Headache: Last injection on 11/19/23: Procerus 5 Units, Generator Rebuilder (Left) 5 Units, Generator Rebuilder (Right) 5 Units, Frontalis (Left) 12.5 Units, [...] meniscus repair 01/07/2009, Tonsil and andoids 04/18/2006, [place] teeth removal 04/18/2005. * Hospitalization/Major Diagno stic [...] Age of carpet? 2 Do you have [id number] carpeting? Y es What is the age [...] *Please review and pick correct strength-formulation from [employer] options. If intended option is not shown, [...] * Examination: G eneral examination: General appearance: Pleasant, well-developed, no distress. HEENT: N ormocephalic, atraumatic. Neck, thyroid : S upple. Neurologic exam: A lert and oriented x 4. Fluent speech. CN II-XII intact. Motor 5/5 strength in all extremities. Reflexes 2+/2 and symmetric in all extremities. Cerebellar testing no tremors. Gait normal. Assessment: * Assessment: 1. C hronic migraine without aura, not intractable, without status migrainosus - G43.709 (Primary) 2 . D rug-induced headache, not elsewhere classified, not intractable - G44.40 3 . R estless legs syndrome - G25.81 Plan: * Treatment: * Procedure Codes: 6 4615 CHEMODENERV MUSC MIGRAINE, J0585 BOTULINUM TOXIN TYPE A PER UNIT, J0585 BOTULINUM TOXIN TYPE A PER UNIT, Modifiers: JW , 55484 PT-FOCUSED HLTH RISK ASSMT, G8427 DOC MEDS VERIFIED W/PT OR RE, G2211 Complex e/m visit add on * Follow Up: 3 Months (Reason: Evaluation and Management. Toxin injection) * Billing Information: * Visit Code: 22625 Office Visit, Est Pt., Level 4. Modifiers: 57252 Office Visit, Est Pt., Level 3. Modifiers: 59539 Office Visit, Est Pt., Level 5. Modifiers: 25 * Procedure Codes: 80546 CHEMODENERV MUSC MIGRAINE. J0585 BOTULINUM TOXIN TYPE A PER UNIT. J0585 BOTULINUM TOXIN TYPE A PER UNIT. Modifiers: JW 42181 PT-FOCUSED HLTH RISK ASSMT. G8427 DOC MEDS VERIFIED W/PT OR RE. G2211 Complex e/m visit add on. * Electronic signature of CHERYL Rojas on 01/27/2025 at 08:39 PM QUILL CLEANING MACHINE OPERATOR Sign off status: Pending * Provider: Michael Tabares APRN Date: 0 03/17/2024 Generated for Brendon broussard/Nupur/Bao on: 03/30/2024 08:39 PM QUILL CLEANING MACHINE OPERATOR History and Physical Notes * HPI (History of Present Illness) Category Sub-Category Detail Notes Category Notes *Introduction HPI: Livia zambrano, who presented for Botox injection *Headache Last injection on 11/19/23: Procerus 5 Units, Generator Rebuilder (Left) 5 Units, Generator Rebuilder (Right) 5 Units, Frontalis (Left) 12.5 Units, [...] TMJ, chronic migraine. Headache History: -Headache Onset: Mid-20s.-Headache Description: Prodrome: Worsening of tinnitus, scalp tingling. [...] Stop ropinirole, change to pramipexole 0.5 mg nightly *Interval History Notes Pharmacologic Treatment:-Cur rent abortive [...] want to continue treatment; so had inadequate trial)Medication overuse: Present - Takes Tylenol at least 5 days/week, as well as rizatriptan.Other modalities: Acupressure/acupuncture, Physical Therapy, ChiropracticHeadache Frequency:Initial/baseline headache/migraine days/month (prior to Botox): 30/30Prior headache/migraine days/month (on Qulipta before Botox): 20/15Last visit headache/migraine days/month (on Qulipta+Botox): 15 (less intense and of less duration than before on these days)/4Current headache/migraine days/month: /Headache Scales:HIT-6: Current score: . Prior score: 65Interval History:Last visit was on 11/19/2023 for Botox injection. Examination Category Sub-Category Detail Notes Category Not es General examination HEENT: Normocephalic, atraum atic Neck, thyroid : Supple General appearance: Pleasant, well-devel oped, no distress Neurologic exam: Alert and oriented x 4. Fluent speech. CN II-XII intact. Motor 5/5 strength in all extremities. Reflexes 2+/2 and symmetric in all extremities. Cerebellar testing no tremors. Gait normal
--- OUTSIDE RECORDS SUMMARY | 2024-03-31 11:30 | XMS_ITS ---
Author Organization [facility] [employer] [facility] [employer] ([address]) Address [address] [place] [address] Care Team Providers Care Crocodile Farmer Name Role Phone Gabriel Desai Primary Care Provider UnavailDr. Krish Martin Unavailable [phone] Isaiah Donohue Unavailable Unavailable Kalpana Tabares Unavailable [phone] Allergies No Known Allergies REASON FOR VISIT Botox BB Follow Up Medications Medication SIG (Take, Route, Frequency, Duration) Notes Start Date End Date Status Ubrelvy 100 MG 1 tab(s) orally 2 times a day; Duration: 30 days 07/24/2023 Active Pramipexole Dihydrochloride 0.5 MG 1 tab(s) orally nightly; Duration: 30 days 05/07/2023 Active Gabapentin 300 MG 1 in am, 2 in pm orally as directed Active Qulipta 60 MG 1 tab(s) orally once a day; Duration: 30 days 05/29/2023 Active Ondansetron 4 MG 1 tab Orally Once a day; Duration: 30 days As needed 08/27/2023 Active Strattera 60 MG 1 cap(s) orally [...] INS intravaginally 3 times a day Active Naltrexone HCl 50 MG 1.25 mg daily orall y once a day Active Rizatriptan Benzoate 10 MG 1 tab(s) orally once a day Active UBRELVY 100 mg 1 tab(s) orally 2 times a day; Duration: 30 days As needed for migraine 07/24/2023 Active DIVIGEL 1.25 MG/PACKET 1.25 MG/1.25 G (0.1%) 1 EA TRANSDERMALLY ONCE A DAY *Please review for potential replacement for e-prescription and drug interaction check* Active Methocarbamol 500 MG 2 tab(s) orally 4 times a day Active Viagra 25 MG 1 tab(s) orally once a day Active GABAPENTIN 300 mg 1 in am, 2 in pm orally as directed Active NALTREXONE 50 mg 1.25 mg daily orally once a day Active STRATTERA 60 mg 1 cap(s) orally once a day (in the morning) Active QULIPTA 60 mg 1 tab(s) orally once a day; Duration: 30 days 05/29/2023 Active PRAMIPEXOLE DIHYDROCHLORIDE 0.5 mg 1 tab(s) orally nightly; Duration: 30 days 05/07/2023 Active FLUVOXAMINE 150 mg 1 cap(s) orally once a day (at bedtime) Active METHOCARBAMOL 500 mg 2 tab(s) orally 4 times a day Active CYCLOBENZAPRINE 10 mg 1 tab(s) orally 3 times a day Active PROGESTERONE 100 mg 1 INS intravaginally 3 times a day Active VIAGRA 25 mg 1 tab(s) orally once a day Active RIZATRIPTAN 10 mg 1 tab(s) orally once a day Active Social History Tobacco Use: Social History Observation Description Date Details (start date - stop date) Former Smoker NA - NA Smoking Smart Form: Question Answer Notes Are you a: former smoker Additional Findings:Tobacco Non-User Ex-moderate cigarette smoker (10-19/day) Encounters Encounter Location Date Provider Diagnosis [facility] [address] [address] 03/31/2024 Kalpana Tabares Chronic migraine without aura, not intractable, without status migrainosus G43.709 ; Drug-induced headache, not elsewhere classified, not intractable G44.40 and Restless legs syndrome G25.81 Assessments Encounter Date Diagnosis (ICD Code) Assessment Notes Treatment Notes Treatment Clinical Notes Section Notes 03/31/2024 Chronic migraine without aura, not intractable, without status migrainosus (ICD-10 - G43.709) 03/31/2024 Drug-induced headache, not elsewhere classified, not intractable (ICD-10 - G44.40) 03/31/2024 Restless legs syndrome (ICD-10 - G25.81) Plan Of Treatment Next Appt Details Follow Up: 3 Months, Reason: Evaluation and Management. Toxin injection Progress Notes * Say MACKEYMellyOB:[birth year] (39 yo F)Acc No.[id number]:03/31/2024 Progress Notes Patient: Livia LYNN Provider: Michael Tabares APRN :1985 A ge:39 Y S ex:Female Date:03/31/2024 Address:[address] [place] [address], [facility] Pcp:Gabriel Desai Subjective: * Chief Complaints: * 1 . Botox BB Follow Up. * HPI: * Introduction: HPI: N sergei [...] * Interval History: Notes P harmacologic Treatment: C urrent abortive treatment: U brelvy 100 mg ( reliably effective) P revious abortive treatment: R izatriptan 10 mg (used to work, now only partially effective and not reliable), Sumatriptan (inadequate effect; side effects) C urrent preventive treatment: B otox, Qulipta, G abapentin (on for RLS; has not helped migraines). P revious preventive treatment: E mgality (took for 1 year; initially helped, then stopped working), Topiramate (took for 6 months; inadequate effect and side effects), Propranolol (side effects; low blood pressure); Venlafaxine (ineffective, took for > 2 months), Duloxetine (ineffective, took > 2 months), Botox (single injection, had temporary ptosis, and didn't want to continue treatment; so had inadequate trial) M edication overuse: Not present O ther modalities: Acupressure/acupuncture, Physical Therapy, Chiropractic H eadache Frequency: I nitial/baseline headache/migraine days/month:30/30 ( prior to Botox and Qulipta) P rior Headache/Migraine Frequency days/month (on Qulipta before Botox): 20/15 L ast visit headache/migraine days/month (on Qulipta + Botox): 15 (less intense and of less duration than before on these days)/4 C urrent headache/migraine days/month: / H eadache Scales: H IT-6: Current score: . Prior score: 65 I nterval History: L ast visit was on 1 for Botox injection.. * Headache: Last injection on 11/19/23: Procerus 5 Units, Paste Maker (Left) 5 Units, Paste Maker (Right) 5 Units, Frontalis (Left) 12.5 Units, [...] meniscus repair 01/07/2009, Tonsil and andoids 04/18/2006, [place] teeth removal 04/18/2005. * Hospitalization/Major Diagno stic [...] Age of carpet? 2 Do you have vird-pj-emyu carpeting? Y es What is the age [...] *Please review and pick correct strength-formulation from [employer] options. If intended option is not shown, [...] examination: General appearance: P leasant, well-developed, no distress. HEENT: N ormocephalic, atraumatic. [...] TYPE A PER UNIT, Modifiers: JW , 78335 PT-FOCUSED HLTH RISK ASSMT, G8427 DOC MEDS VERIFIED W/PT OR RE, G2211 Complex e/m visit add on * Follow Up: 3 Months (Reason: Evaluation and Management. Toxin injection) * Billing Information: * Visit Code: 05421 Office Visit, Est Pt., Level 4. Modifiers: 80269 Office Visit, Est Pt., Level 3. Modifiers: 58798 Office Visit, Est Pt., Level 5. Modifiers: 25 * Procedure Codes: 70390 CHEMODENERV MUSC MIGRAINE. J0585 BOTULINUM TOXIN TYPE A PER UNIT. J0585 BOTULINUM TOXIN TYPE A PER UNIT. Modifiers: JW 21090 PT-FOCUSED HLTH RISK ASSMT. G8427 DOC MEDS VERIFIED W/PT OR RE. G2211 Complex e/m visit add on. * Electronic signature of CHERYL Rojas on 01/27/2025 at 08:41 PM CASH MANAGEMENT SPECIALIST Sign off status: Pending * Provider: Michael Tabares APRN Date: 0 03/31/2024 Generated for Brendon [place]iedo/Bao on: 03/30/2024 08:41 PM CASH MANAGEMENT SPECIALIST History and Physical Notes * HPI (History of Present Illness) Category Sub-Category Detail Notes Category Notes *Introduction HPI: Livia zambrano, who presented for Botox injection *Headache Last injection on 11/19/23: Procerus 5 Units, Paste Maker (Left) 5 Units, Paste Maker (Right) 5 Units, Frontalis (Left) 12.5 Units, [...] 0.5 mg nightly *Interval History Notes Pharmacologic Treatment:Curr ent abortive treatment: Ubrelvy 100 mg (reliably effective)Previous abortive treatment: Rizatriptan 10 mg (used to work, now only partially effective and not reliable), Sumatriptan (inadequate effect; side effects)Current preventive treatment: Botox, Qulipta, Gabapentin (on for RLS; has not helped migraines).Previous preventive treatment: Emgality (took for 1 year; initially helped, then stopped working), Topiramate (took for 6 months; inadequate effect and side effects), Propranolol (side effects; low blood pressure); Venlafaxine (ineffective, took for > 2 months), Duloxetine (ineffective, took > 2 months), Botox (single injection, had temporary ptosis, and didn't want to continue treatment; so had inadequate trial)Medication overuse: Not presentOther modalities: Acupressure/acupuncture, Physical Therapy, ChiropracticHeadache Frequency:Initial/baseline headache/migraine days/month: (prior to Botox and Qulipta)Prior Headache/Migraine Frequency days/month (on Qulipta before Botox): Last visit headache/migraine days/month (on Qulipta + Botox): 15 (less intense and of less duration [...]
--- OUTSIDE RECORDS SUMMARY | 2024-05-12 11:30 | XMS_ITS ---
Author Organization [facility] [employer] [place] ([address]) Address [address] [place] [address] Care Team Providers Care Blind Hooker Name Role Phone Gabriel Desai Primary Care Provider UnavailDr. Krish Martin Unavailable [phone] Isaiah Donohue Unavailable Unavailable Kalpana Tabares Unavailable [phone] Allergies No Known Allergies REASON FOR VISIT Botox BB Only Medications Medication SIG (Take, Route, Frequency, Duration) Notes Start Date End Date Status Pramipexole Dihydrochloride 0.5 MG 1 tab(s) orally nightly; Duration: 30 days 05/07/2023 Active Ubrelvy 100 MG 1 tab(s) orally 2 times a day; Duration: 30 days 07/24/2023 Active Gabapentin 300 MG 1 in am, 2 in pm orally as directed Active Ondansetron 4 MG 1 tab Orally Once a day; Duration: 30 days As needed 08/27/2023 Active Qulipta 60 MG 1 tab(s) orally once a day; Duration: 30 days 05/29/2023 Active fluvoxaMINE Maleate 150 MG 1 CAP(S) ORALLY ONCE A DAY (AT BEDTIME) *Please review and pick correct strength-formulat ion from Medispan options. If intended option is not shown, discontinue and re-order from Quick Search* Active Strattera 60 MG 1 cap(s) orally once a day (in the morning) Active Naltrexone HCl 50 MG 1.25 mg daily orall y once a day Active Progesterone 100 MG 1 INS intravaginally 3 times a day Active Cyclobenzaprine HCl 10 MG 1 tab(s) orally 3 times a day Active Rizatriptan Benzoate 10 MG 1 tab(s) orally once a day Active Viagra 25 MG 1 tab(s) orally once a day Active Methocarbamol 500 MG 2 tab(s) orally 4 times a day Active DIVIGEL 1.25 MG/PACKET 1.25 MG/1.25 G (0.1%) 1 EA TRANSDERMALLY ONCE A DAY *Please review for potential replacement for e-prescription and drug interaction check* Active Social History Tobacco Use: Social History Observation Description Date Details (start date - stop date) Former Smoker NA - NA Smoking Smart Form: Question Answer Notes Are you a: former smoker Additional Findings:Tobacco Non-User Ex-moderate cigarette smoker (10-19/day) Encounters Encounter Location Date Provider Diagnosis [address] [address] 05/12/2024 Kalpana Tabares Chronic migraine without aura, not intractable, without status migrainosus G43.709 ; Drug-induced headache, not elsewhere classified, not intractable G44.40 and Restless legs syndrome G25.81 Assessments Encounter Date Diagnosis (ICD Code) Assessment Notes Treatment Notes Treatment Clinical Notes Section Notes 05/12/2024 Chronic migraine without aura, not intractable, without status migrainosus (ICD-10 - G43.709) 05/12/2024 Drug-induced headache, not elsewhere classified, not intractable (ICD-10 - G44.40) 05/12/2024 Restless legs syndrome (ICD-10 - G25.81) Plan Of Treatment Next Appt Details Follow Up: 3 Months, Reason: Evaluation and Management. Toxin injection Progress Notes * Fabián MACKEYOB:[birth year] (39 yo F)Acc No.[id number]:05/12/2024 Progress Notes Patient: Jordan Livia CHILD Provider: Michael Tabares APRN :1985 A ge:39 Y S ex:Female Date:05/12/2024 Address:[address] [place] [address], [facility] Pcp:Gabriel Desai Subjective: * Chief Complaints: * 1 . Botox BB Only. * HPI: * Introduction: HPI: N sergei MckinneyArethaFlip, who presented for Botox injection. * Initial [...] urrent abortive treatment: U brelvy 100 mg (reliably effective) P revious abortive treatment: R izatriptan 10 mg (used to work, now only partially effective and not reliable), Sumatriptan (inadequate effect; side effects) C urrent preventive treatment: Botox, Qulipta, Gabapentin (on for [...] edication overuse: Not present O ther modalities: H eadache Frequency: I nitial/baseline headache/migraine days/month: 3030 ( prior to Qulipta + Botox) L ast visit headache/migraine days/month: 15 (less intense and of less duration than before on these days)/4 ( on Quliipta + Botox) C urrent headache/migraine days/month: / H eadache Scales: H IT-6: Current score: . Prior score: 65 I nterval History: L ast visit was on 1 for Botox injection. . * Headache: Last injection on 11/19/23: Procerus 5 Units, Resource Director (Left) 5 Units, Resource Director (Right) 5 Units, Frontalis (Left) 12.5 Units, [...] meniscus repair 01/07/2009, Tonsil and andoids 04/18/2006, [place] teeth removal 04/18/2005. 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 * Family History: F ather: Yes. M other: Yes. P aternal Grand Father: Yes. P aternal Grand Mother: Yes. M aternal Grand Father: No. M aternal Grand Mother: Yes. P aternal uncle: Yes. S iblings: Yes. C venus: Yes. * Social History: M arital Status What is your marital status? m arried A lcohol Screening Do you ever drink alcoholic beverages? Y es Number of drinks per occasion: 1 Frequency? W demetrio C affeine: Yes. S moking Have you [...] often do you perform this exercise? w demetrio Araujo re any of the following personal care [...] Age of carpet? 2 Do you have jycw-yp-lutp carpeting? Y es What is the age [...] 2 How many rats? 4 * Medications: Sandi case Rizatriptan Benzoate 10 MG Tablet 1 tab(s) [...] *Please review and pick correct strength-formulation from Intraxio options. If intended option is not shown, [...] orally 2 times a day , Taking Ondansetron 4 MG Tablet Disintegrating 1 tab Orally Once a day As needed, Taking Qulipta 60 MG Tablet 1 tab(s) orally once a day , Discontinued RIZATRIPTAN 10 mg tablet 1 tab(s) orally once a day , Discontinued METHOCARBAMOL 500 mg tablet 2 tab(s) orally 4 times a day , Discontinued VIAGRA 25 mg tablet 1 tab(s) orally once a day , Discontinued PROGESTERONE 100 mg insert 1 INS intravaginally 3 times a day , Discontinued CYCLOBENZAPRINE 10 mg tablet 1 tab(s) orally 3 times a day , Discontinued FLUVOXAMINE 150 mg capsule, extended release 1 cap(s) orally once a day (at bedtime) , Discontinued STRATTERA 60 mg capsule 1 cap(s) orally once a day (in the morning) , Discontinued NALTREXONE 50 mg tablet 1.25 mg daily orally once a day , Discontinued GABAPENTIN 300 mg capsule 1 in am, 2 in pm orally as directed , Discontinued PRAMIPEXOLE DIHYDROCHLORIDE 0.5 mg tablet 1 tab(s) orally nightly , Discontinued QULIPTA 60 mg tablet 1 tab(s) orally once a day , Discontinued UBRELVY 100 mg tablet 1 tab(s) orally 2 times a day As needed for migraine * Allergies: N .K.D.A. Objective: * Vitals: * Examination: G eneral examination: General appearance: P leasant, well-developed, no distress.? HEENT: N ormocephalic, atraumatic. Neck, thyroid : [...] TYPE A PER UNIT, Modifiers: JW , 47770 PT-FOCUSED HLTH RISK ASSMT, G8427 DOC MEDS VERIFIED W/PT OR RE, G2211 Complex e/m visit add on * Follow Up: 3 Months (Reason: Evaluation and Management. Toxin injection) * Billing Information: * Visit Code: 84827 Office Visit, Est Pt., Level 4. Modifiers: 52783 Office Visit, Est Pt., Level 3. Modifiers: 11793 Office Visit, Est Pt., Level 5. Modifiers: 25 * Procedure Codes: 02493 CHEMODENERV MUSC MIGRAINE. J0585 BOTULINUM TOXIN TYPE A PER UNIT. J0585 BOTULINUM TOXIN TYPE A PER UNIT. Modifiers: JW 25414 PT-FOCUSED HLTH RISK ASSMT. G8427 DOC MEDS VERIFIED W/PT OR RE. G2211 Complex e/m visit add on. * Electronic signature of CHERYL Rojas on 01/27/2025 at 08:41 PM FREIGHT WEIGHER Sign off status: Pending * Provider: Michael Tabares APRN Date: 0 05/12/2024 Generated for Brendon broussard/Nupur/eTransmitting on: 1 03/30/2024 08:41 PM FREIGHT WEIGHER History and Physical Notes * HPI (History of Present Illness) Category Sub-Category Detail Notes Category Not es *Introduction HPI: Livia Mckinney-Sudarshan os, who presented for Botox injection *Headache Last injection on 11/19/23: Procerus 5 Units, Resource Director (Left) 5 Units, Resource Director (Right) 5 Units, Frontalis (Left) 12.5 Units, [...] this was about 8-10 days/month with headache. *Previous Impression & Plan Notes Previous Diagnoses:1. [...] 0.5 mg nightly *Interval History Notes Pharmacologic Treatment:Current abortive treatment: Ubrelvy 100 mg (reliably effective)Previous [...] had inadequate trial)Medication overuse: Not presentOther modalities: Headache Frequency:Initial/baseline headache/migraine days/month: 30/30 (prior to Qulipta + Botox) Last visit headache/migraine days/month: 15 (less intense and of less duration than before on these days)/4 (on Quliipta + Botox)Current headache/migraine days/month: /Headache Scales:HIT-6: Current score: . Prior score: 65 Interval History:Last visit was on 11/19/2023 for Botox [...]
--- NOTE | 2025-01-27 15:44 | ED.FEMALEGU ---
HPI - Female Genitourinary General Chief complaint: Urogenital-Female Stated complaint: yeast inf Time Seen by Provider: 01/27/25 15:55 Source: patient and RN notes reviewed Mode of arrival: ambulatory Limitations: no limitations History of Present Illness HPI Narrative: 39-year-old female presents with concern for vaginal itching. She reports history of getting UTIs she takes frequent bad. She is taking frequent baths because she hurt her knee. She reports yesterday she started having vaginal itching and states having some white discharge. She denies any dysuria, frequency, urgency, abdominal pain or back pain, nausea vomiting MD elicited complaint: genital itching Related Data Home Medications ?Medication ?Instructions ?Recorded ?Confirmed ?Last Taken ?Type atogepant 60 mg tablet (Qulipta) 60 mg PO DAILY 08/02/23 08/10/23 Unknown History fluvoxamine 150 mg 150 mg PO DAILY 08/02/23 08/10/23 Unknown History capsule,extended release 24 hr gabapentin 300 mg capsule 300 mg PO TID 08/02/23 08/10/23 Unknown History levonorgestrel (Mirena) See Rx Instructions .Route .COMPLEX 08/02/23 08/10/23 Unknown History sildenafil (pulm.hypertension) 20 20 mg PO DAILY 08/02/23 08/10/23 Unknown History mg tablet estradiol 0.05 mg/24 hr weekly 01/27/25 Unknown History transdermal patch lisdexamfetamine 20 mg capsule mg 01/27/25 Unknown History testosterone 50 mg/5 gram (1 %) 01/27/25 Unknown History transdermal gel Allergies Allergy/AdvReac Type Severity Reaction Status Date / Time No Known Allergies Allergy Verified 01/27/25 15:52 Review of Systems Review of Systems: CONSTITUTIONAL: Denies malaise, chills, sweats, or fever. CARDIOVASCULAR: Denies chest pain, palpitations, or edema. RESPIRATORY: Denies cough or dyspnea. GASTROINTESTINAL: Denies abdominal pain, nausea, vomiting, diarrhea GENITOURINARY: Reports vaginal itching and small white discharge. Denies dysuria, frequency, urgency, suprapubic pressure. Denies flank pain or hematuria. SKIN: Denies rash or itching. MUSCULOSKELETAL: Denies back pain or myalgia. All systems reviewed & are unremarkable except as noted in HPI and below PMFSH Comments At time of signature, agree with nursing past medical, surgical, social and family history. There is no relevant family history pertinent to the presenting complaint Exam Narrative: GENERAL: Well-appearing, well-nourished, and in no acute distress. HEAD: Normocephalic. EYES: PERRLA, conjunctivae clear. NECK: Supple. No lymphadenopathy CHEST: Clear to auscultation. No respiratory distress. HEART: Regular rate and rhythm. SKIN: Warm, dry, no rash. NEURO: Alert and oriented x3. PSYCH: Normal mood and affect Course Course Emergency Course: Patient is aware of diagnosis, understands and agrees to treatment plan. Anticipatory guidance given. Patient agrees to follow-up as directed and is aware of reasons to seek care at the emergency department. Portions of this record may have been created with voice recognition software Level of Care: [facility] Visit MDM Differential Diagnosis Differential Diagnosis: I evaluated this patient in the [facility]. History is obtained from patient who is an independent historian and physical exam was performed.? Available medical records were reviewed. ? Exam findings and relevant testing show no acute concerns or changes; patient is non-toxic appearing and is in no distress. ? Exam findings and UA show no acute concerns or changes; patient is non-toxic appearing and is in no distress. No CMT, adnexal tenderness, or evidence of pelvic etiology. Differential diagnosis include pyelonephritis, STI, cystitis, urinary tract infection, acute abdomen, gastroenteritis, yeast infection Differential diagnosis and treatment plan were discussed with the patient. Patient agrees with discussion and after shared medical decision making agrees with plan of care. All questions were answered to the patient's satisfaction. Patient is appropriate for outpatient treatment and follow-up. Discharge Plan Discharge Clinical Impression: Vaginal itching Patient Disposition: Home Condition: Stable Instructions: Antibiotic Form, Yeast Infection (ED) Additional Instructions: Wash the area with gentle soap and water only. Dry thoroughly Take medication as prescribed Avoid scratching when possible to prevent worsening of the condition and disruption of the skin Follow up with primary care provider or seek ER if you have trouble breathing, become hoarse, or start wheezing, develop belly cramps, vomiting or feel dizzy. Patient Language: Turkmen Prescriptions: New fluconazole 150 mg tablet 150 mg PO Q48H 3 Days Qty: 2 0RF Rx Instructions: take one dose now, and a second dose if symptoms remain in 48 hours No Action gabapentin 300 mg capsule 300 mg PO TID sildenafil (pulm.hypertension) 20 mg tablet 20 mg PO DAILY fluvoxamine 150 mg capsule,extended release 24hr 150 mg PO DAILY Qulipta 60 mg tablet 60 mg PO DAILY Mirena 21 mcg/24 hr (8 yrs) 52 mg Intrauterine Device See Rx Instructions .ROUTE .COMPLEX Rx Instructions: intrauterinely estradiol 0.05 mg/24 hr patch weekly lisdexamfetamine 20 mg capsule testosterone 50 mg/5 gram (1 %) gel Follow-up/Referrals: Lloyd,Gabriel Ariza MD [Primary Care Provider, Unknown] Time of Disposition: 16:04
[2025-01-27 15:51] VITALS: BP 105/56; PULSE 62; RESP 18; TEMP 36.9; O2SAT 100
--- OUTSIDE RECORDS SUMMARY | 2025-01-27 20:39 | XMS_ITS | Clinical Summary ---
Author Organization [facility] Address [address] [facility] [place] [address] Care Team Providers Care Ovens Supervisor Name Role Phone Gabriel Desai MD Primary Care Provider + Angela Lerner COURT COMMISSIONER-AP PROCESSOR Unavailable [phone] Source Comments [facility],non-owned Affiliates and Associated Physician Practices is amultiple site organization consisting of ambulatory clinics and hospital sitesin [place], [place], [place] and [place]. This disclosure is being madepursuant to the Care Everywhere program and may not contain all information available regarding this patient. Last updated 17.[facility] Allergies Active Allergy Reactions Criticality Noted Date Comments Hydrocodone Nausea and/or Vomiting 01/21/2009 Oxycodone Rash Medium 04/23/2009 Medications * Be aware that medications may not be up to date on this document. Alwaysverify current medications with the patient. fluticasone propionate (FLONASE) 50 MCG/ACT nasal sprayIndications :Allergic rhinitis [place] 2 Sprays into each nostril daily. 1 5 9 Active norethindrone-et hinyl estradiol (MICROGESTIN) 1.5-30 MG-MCG tablet Take 1 Tab by mouth daily. Active lisdexamfetamine (VYVANSE) 70 MG capsule Take 1 Cap by mouth every morning. Diagnosis ADD Condition Stable 90 Cap 0 1 Active Norethindrone (CAROLANN PO) Active PROGESTERONE PO Acti ve norethin-eth estradiol-FE (LOESTRIN FE 03/09; JUNEL FE 03/09; MICROGESTIN FE 03/09) 1-20 MG-MCG tablet 7 Active albuterol HFA (VENTOLIN HFA) 108 (90 BASE) MCG/ACT inhaler Inhale 2 puffs by mouth every 6 hours as needed for Wheezing or Cough 1 Inhaler 8 Active fluticasone propionate (FLONASE) 50 MCG/ACT nasal spray [place] 2 sprays into each nostril once daily 1 bottles 8 Active oxyCODONE, immediate release, (Roxicodone) 5 MG tabletIndication s:Acute Pain Take 1 (one) tablet by mouth every 6 hours as needed for Pain Reasons: Acute Pain 12 tablet 4 Active Active Problems Problem Noted Date Diagnosed Date ADD (attention deficit disorder) 07/10/2010 Otalgia 04/22/2007 Overview (04/22/2007): Right Malaise and fatigue 04/22/2007 Weight gain 04/22/2007 Chest congestion 04/22/2007 Allergic rhinitis Immunizations Immunization Administration Dates Next Due HEP A VACCINE, ADULT 06/08/2010,12/02/2009 HepB Unspecified formulation 06/08/2010,01/06/20 10,12/02/2009 Human Papilloma Virus Quadrivalent Vaccine 01/05,12/02/2009 Human Papilloma Virus Vaccine 01/21/2009 INFLUENZA VACCINE 11/08/2009 TDAP (7yrs+) 01/21/2009 Family History Medical History Relation Name Comments Asthma Father CAD (Coronary Artery Disease) Maternal Grandfather Diabetes Maternal Grandmother Asthma Mother Cancer Mother small cell jeanne l Cancer - Other Mother Diabetes Paternal Grandmother Asthma Sister Autoimmune Disease Neg Hx Bipolar Disorder Neg Hx Cancer - Breast Neg Hx Cancer - Colon Neg Hx Cancer - Ovarian Neg Hx Cancer - Pancreatic Neg Hx Cancer - Prostate Neg Hx Depression Neg Hx Eczema Neg Hx Hypertension Neg Hx Migraine Neg Hx Osteoporosis Neg Hx Seizures Neg Hx Sudd. <30 Neg Hx Thyroid Disease Neg Hx Ulcerative Colitis Neg Hx Relation Name Status Comments Father Alive Maternal Grandfather (Age 49) MD Maternal Grandmother (Age 70) co pd, diabetes Mother Alive Paternal Grandfather (Age 76) li smith failure Paternal Grandmother (Age 78) br ain aneurysm Sister Social History Tobacco Use Types Packs/Day Years Used Date Smoking Tobacco: Former Cigarettes 1 1 0 02/18/2006 - 02/18/2007 Smokeless Tobacco: Never Tobacco Cessation:Counseling Given: No Alcohol Use Standard Drinks/Week Comments Yes 1.7 (1 standard drink = 0.6 oz p ure alcohol) Comments No Sex and Gender Information Value Date Recorded Sex Assigned at Female 12/26/2020 7:24 AM FILTER TENDER Legal Sex Female 6:24 AM FILTER TENDER Gender Identity Female 12/26/2020 7:24 AM FILTER TENDER Sexual Orientation Straight 12/26/2020 7: 24 AM FILTER TENDER 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 Not on file Not on file Not on shira e Last Filed Vital Signs Vital Sign Reading Time Taken Comments Blood Pressure 135/82 09/12/2023 1:29 AM CDT Pulse 60 09/12/2023 1:29 AM CDT Temperature 36 C (96.8 F) 09/12/2023 1:32 AM CDT Respiratory Rate 17 09/12/2023 1:34 AM CDT Oxygen Saturation 99% 09/12/2023 1:29 AM CDT Inhaled Oxygen Concentration - - Weight 73 kg (161 lb) 09/11/2023 9:36 PM CDT Height 157.5 cm (5' 2) 09/11/2023 9:36 PM CDT Body Mass Index 29.45 09/11/2023 9:36 PM CDT Plan of Treatment Health Maintenance Due Date Last Done Comments MAMMOGRAM 1985 HIV SCREENING 02/03/1999 HEPATITIS C SCREENING 01/30/2002 PAP SMEAR 02/03/2005 HPV VACCINE (3 - 3-dose series) 03/30/2010 01/05/2010, 12/02/2009, 01/21/2009 LIPID TESTING 11/03/2014 11/03/2009 DTAP/TDAP/TD VACCINES (2 - Td or Tdap) 01/21/2019 01/21/2009 DEPRESSION SCREENING 02/19/2024 COVID-19 VACCINE ( season) 2024 01/08/2023, 12/19/2021, 01/31/2021, Additional history exists INFLUENZA VACCINE (#1) 2024 3, 12/19/2021, 12/26/2020, Additional history exists ZOSTER VACCINE (1 of 2) 02/03/2034 HEPATITIS B VACCINE Completed 06/08/2010, 01/05/2010, 12/02/2009 HIB VACCINE Aged Out No longer eligi ble based on patient's age to complete this topic MENINGOCOCCAL (Group B) VACCINE SHARED DECISION-MAKING Aged Out No longer eligible based on patient's age to complete this topic MENINGOCOCCAL GROUPS A/C/Y/W VACCINE Aged Out No longer eligible based on patient's age to complete this topic PNEUMOCOCCAL VACCINE Aged Out No long er eligible based on patient's age to complete this topic Procedures Procedure Name Priority Date/Time Associated Diagnosis Comments LIPID PROFILE Routine 11/03/2009 12:08 PM CDT Weight Gain from Last 3 Months or Most Recently Relevant to Health Maintenance Results * (ABNORMAL) LIPID PROFILE (11/03/2009 12:08 PM CDT) Cholesterol 188 100 - 199 mg/dL [facility] ACCOUNT BILL Triglycerides 175(H) 0 - 149 mg/dL [facility] ACCOUNT BILL HDL Cholesterol 56 >39 mg/dL [facility] ACCOUNT BILL Comment: According to ATP-III Guidelines, HDL-C >59 mg/dL is considered a negative risk factor for CHD. VLDL Calculated 35 5 - 40 mg/dL [facility] ACCOUNT BILL LDL Calculated 97 0 - 99 mg/dL [facility] ACCOUNT BILL BLOOD SPECIMEN / Unknown 11/03/2009 12:08 PM CDT 11/07/2009 10:20 PM CDT Narrative Resulting Agency Comment [facility] [address] [facility] [phone] us Steve Uribe MD LAB - CHEMISTRY ORDERABLES Caroline dave Result [facility] ACCOUNT BILL [address] [place] [address] from Last 3 Months or Most Recently Relevant to Health Maintenance Insurance [employer] A[employer] Care Teams Ovens Supervisor Relationship Specialty [place] [address] [place] [id number] PCP - General Family Medicine 09/11/23 Anglea Lerner, RAINER-AP PROCESSOR [address] [phone] Nurse Practitioner Family 09/11/23
--- OUTSIDE RECORDS SUMMARY | 2025-01-27 20:40 | XMS_ITS | Encounter Summary ---
Author Organization [facility] Address [address] [place] [address] Care Team Providers Care Licensed Dispensing Optician Name Role Phone Dunia Simons MD Unavailable [phone] Dunia Simons MD Unavailable [phone] Brett Jimenez MD Primary Care Provider + Darshan Suarez MD Primary Care Provider [phone] Encounter Details Date Type Department Care Team (Late st Contact Info) Description 02/22/[address] [facility] Medical Office Bldg 1 OP Physical Therapy [address] [place] [id number] Teo Daniel, PT Social History Tobacco Use Types Packs/Day Years Used Date Smoking Tobacco: Former Cigarettes 0.5 5 0 05/20/2007 - 05/19/2012 Smokeless Tobacco: Never Alcohol Use Standard Drinks/Week Comments Yes 3 (1 standard drink = 0.6 oz pur e alcohol) AUDIT-C Answer Date Recorded Q1: How often do you have a drink containing alc ohol? Monthly or less 07/07/2020 Q2: How many drinks containi ng alcohol do you have on a typical day when you are drinking? 1 or 2 07/07/2020 Q3: How often do you have si x or more drinks on one occasion? Never 07/07/2020 PHQ-2 Answer Date Recorded PHQ-2 Total Score (If total score is 3 or more points, staff should administer the PHQ-9) 0 12/26/2020 Comments No Sex and Gender Information Value Date Recorded Sex Assigned at Not on file Legal Sex Female 2:09 AM SALES ORDER SPECIALIST Gender Identity Female 03/28/2019 8:27 PM SALES ORDER SPECIALIST Sexual Orientation Choose not to disclose 2023 10:08 AM CDT documented as of this encounter Plan of Treatment Not on file documented as of this encounter Visit Diagnoses Not on filedocumented in this encounter Additional Health Concerns Infection Onset Date Last Indicated Resolved Time COVID: Suspected 05/09/2023 05/09/2023 05/09/2023 4:39 AM CDT C. difficile suspected 11/18/2024 11/23/202411/19 7:26 PM CDT C. difficile suspected 11/23/2024 11/23/202411/23 7:23 PM CDT C. difficile suspected 11/23/2024 11/23/202411/23 9:03 PM CDT documented as of this encounter Care Teams Licensed Dispensing Optician Relationship Specialty Start Date End Date Brett Jimenez MD [address] [facility] [address] [place] [address] PCP - General Family Medicine 05/20/24 06/28/24 Darshan Suarez MD [address] [facility] [address] [place] [address] PCP - General Family Medicine 06/29/24 Dunia Simons MD [address] [place] [address] 08/27/19 Dunia Simons MD [address] [place] [address] 01/06/19 documented as of this encounter
--- OUTSIDE RECORDS SUMMARY | 2025-01-27 20:40 | XMS_ITS | Clinical Summary ---
Author Organization [facility] Address [address] [place] [id number] Care Team Providers Care Parlor Chaperone Name Role Phone Didi Donohue DO Primary Care Provider [phone] Allergies Active Allergy Reactions Criticality Noted Date Comments Ibuprofen Other (See Comments) Low 07/17/2024 Pt had a R-N-Y in 2021 and should not use motrin NOTE: changed the NSAID allergy to only motrin Medications fluticasone (FLONASE) 50 mcg/Actuation Both Nostril SpSn Administer 2 Sprays in each nostril 1 time daily as needed. Active gabapentin (NEURONTIN) 300 mg capsule Take 600 mg by mouth 2 times daily. 600mg in am, 900mg in pm 3 Active naltrexone HCl (NALTREX ORAL) Take 5 mg by mouth daily at bedtime. Active fluvoxaMINE (LUVOX CR) 100 mg Controlled Release 24 hour capsule Take 100 mg by mouth daily. 5 Active Qulipta 60 mg Tablet Take 60 mg by mouth daily at bedtime. 4 Active sildenafiL, pulm.hypertens ion, (REVATIO) 20 mg Tablet Take 20 mg by mouth daily. For Raynauds 4 Active cyclobenzaprin e (FLEXERIL) 10 mg tablet Take 10 mg by mouth 2 times daily. Active Estradiol (DivigeL) 0.5 mg/0.5 gram (0.1 %) Gel in Packet Apply 1.25 mg to affected area daily. 4 Active testosterone 10 mg/mL topical cream compound Apply to affected area daily. 0.1% cream Active Premarin 0.625 mg/gram vaginal cream Insert 0.5 Grams vaginally see administration instructions. 4 Active ondansetron (ZOFRAN) 8 mg Tablet Take 4 mg by mouth every 8 hours as needed for Nausea. Active metoclopramide HCl (REGLAN) 10 mg tablet Take 10 mg by mouth 1 time daily as needed for Nausea/Emesis. Active methocarbamoL (ROBAXIN) 500 mg tablet Take 500 mg by mouth 3 times daily as needed. 4 Active multivitamin (DAILY-JUANA) tablet Take 1 Tablet by mouth daily. Active CYANOCOBALAMIN , VITAMIN B-12, ORAL Take by mouth daily. Active triamcinolone acetonide (KENALOG) 0.025 % Cream Apply to affected area 1 time daily as needed for Other (See Comment) (psorasis). 4 Active omeprazole (PriLOSEC) 10 mg Capsule, Delayed Release(E.C.) Take 10 mg by mouth 1 time daily as needed. 4 Active levonorgestreL (MIRENA) 21 mcg/24hr (up to 8 yrs) 52 mg IUD 1 Device by Intrauterine route. 1 026 Active clobetasoL (TEMOVATE) 0.05 % Ointment Apply to affected area 2 times daily as needed for Other (See Comment) (vaginal dryness). 4 Active acetaminophen (TYLENOL) 500 mg tablet Take 500 mg by mouth every 6 hours as needed. 2 Active MELATONIN ORAL Take by mouth nightly as needed. Active GLUTATHIONE, BULK, MISC Inject 1 mL by intramuscular injection every third day. 2x/weekly Active chlorhexidine gluconate 0.12 % Mouthwash Swish and spit 5 mL by mouth as directed 2 times daily. Do not swallow the mouthwash. 473 mL 07/17/2024 2:54 PM CDT 5 Active ondansetron (ZOFRAN ODT) 4 mg Tablet, Rapid Dissolve Dissolve 1 Tablet (4 mg) on top of tongue then swallow with saliva every 6 hours as needed for Nausea or Vomiting 20 Tablet 07/17/2024 2:54 PM CDT 5 Active Active Problems Problem Noted Date Diagnosed Date Abnormality of gait 07/15/2024 Acute pain due to trauma 07/15/2024 Aftercare following surgery 07/15/2024 Feeding difficulty 07/15/2024 Impaired mobility 07/15/2024 Other disturbances of skin sensation 07/15/2024 Other acute postprocedural pain 07/15/2024 Reduced mobility 07/15/2024 Risk for falls 07/15/2024 Unsteady gait 07/15/2024 Arthralgia of bilateral temporomandibular joint 06/25/2024 Arthritis of bilateral temporomandibular joint 0 06/25/2024 Cross bite 06/25/2024 Other jaw asymmetry 06/25/2024 Trismus 06/25/2024 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 Anterior open bite 06/25/2024 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 Encounters Date Type Department Care Team Description 01/19/2025 External Device Data ST[facility] ABSTRACTION Provider, Abstract 01/19/2025 External Device Data [facility] ABSTRACTION Provider, Abstract 01/12/2025 External Device Data [facility] ABSTRACTION Provider, Abstract 01/12/2025 External Device Data [facility] ABSTRACTION Provider, Abstract 01/05/2025 External Device Data [facility] ABSTRACTION Provider, Abstract 01/05/2025 External Device Data ST[facility] ABSTRACTION Provider, Abstract 11/03/2024 External Device Data STL ABSTRACTION Provider, Abstract from Last 3 Months Social History Tobacco Use Types Packs/Day Years Used Date Smoking Tobacco: Former Cigarettes 0 Q uit: 2009 Smokeless Tobacco: Never Tobacco Cessation:Counseling Given: Not Answered Alcohol Use Standard Drinks/Week Comments Yes 2 (1 standard drink = 0.6 oz pur e alcohol) Feeling Safe Answer Date Recorded Are you in a relationship wi th someone who hurts you emotionally and/or physically? 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 Gender Identity Not on file Sexual Orientation Not on file Last Filed Vital Signs Vital Sign Reading Time Taken Comments Blood Pressure 129/82 07/17/2024 12:11 PM CDT Pulse 58 07/17/2024 12:11 PM CDT Temperature 36.6 C (97.9 F) 07/17/2024 12:11 PM CDT Respiratory Rate 16 07/17/2024 12:11 PM CDT Oxygen Saturation 98% 07/17/2024 12:11 PM CDT Inhaled Oxygen Concentration - - Weight 74.8 kg (165 lb) 07/14/2024 6:22 AM CDT Height 160 cm (5' 3) 07/14/2024 6:22 AM CDT Body Mass Index 29.23 07/14/2024 6:22 AM CDT Plan of Treatment Health Maintenance Due Date Last Done Comments Pre-Diabetes and Diabetes Screening 1984 HPV/Cotest (21-29) 02/03/2005 HPV VACCINES (3 - 3-dose series) 03/30/2010 01/05/2010, 12/02/2009, 01/21/2009 CERVICAL CANCER SCREENING 02/03/2014 HPV/Cotest (30-65) 02/03/2014 PAP SMEAR 02/03/2014 DTAP/TDAP/TD VACCINES (3 - T d or Tdap) 01/21/2019 01/21/2009, 02/19/2008 INFLUENZA VACCINE (#1) 2024 , 01/08/2023, 12/26/2020, Additional history exists COVID-19 Vaccine (2024-2 6 season) 2024 12/20/2023, 01/31/2021, 04/13/2020, Additional history exists BREAST CANCER SCREENING 05/21/2025 05/22/19, 05/21/2024, 01/05/2016, Additional history exists HEPATITIS B VACCINES Completed 06/08/2010, 01/05/2010, 12/02/2009 Medical Devices Implanted Type Area Manager Alliance Device Identifier Shelf Expiration Date Model / Serial / Lot Hemostatic Surgicel 1x2in 1961 [id number] Implanted:Qty: 1 on 07/14/2024 by Arnaud Cuellar DMD at [facility] Hemostatic N/A: Mandible J&J- [employer] [id number] 03/20/20261960 [id number] Hemostatic Surgicel 2x4in 1961 - [id number] Implanted:Qty: 1 on 07/14/2024 by Arnaud Cuellar DMD at [facility] Hemostatic N/A: Mandible J&J- [employer] [id number] 01/17/20271961 / / [id number] Trumatch Full Bimaxillary Kit Implanted:Qty: 1 on 07/14/2024 by Arnaud Cuellar DMD at [facility] Other N/A: Mandible J&J- DEPUY SYNTHES [id number] / / Description:1X ADD JM LOAD# [id number] STERILZED 07/10/24 Glenoid Fossa Component, Right Implanted:Qty: 1 on 07/14/2024 by Arnaud Cuellar DMD at [facility] Other N/A: Mandible BETHANY- CMF fka LEIBINGER [id number] / / [id number] Description:1X ADD JM Glenoid Fossa Component, Left Implanted:Qty: 1 on 07/14/2024 by Arnaud Cuellar DMD at [facility] Other N/A: Mandible BETHANY- CMF fka LEIBINGER [id number] / / [id number] Description:1X ADD JM Mandibular Component, All Ti, Left Implanted:Qty: 1 on 07/14/2024 by Arnaud Cuellar DMD at [facility] N/A: Mandible BETHANY- CMF fka LEIBINGER [id number] / / [id number] Description:1X ADD JM Mandibular Component, All Ti, Right Implanted:Qty: 1 on 07/14/2024 by Arnaud Cuellar DMD at [facility] N/A: Mandible BETHANY- CMF fka LEIBINGER [id number] / / [id number] Description:1X ADD JM 12mm Imf Screw Implanted:Qty: 11 on 07/14/2024 by Arnaud Cuellar DMD at [facility] Screw N/A: Mandible J&J- DEPUY SYNTHES [id number] / / Description:1X ADD JM LOAD# [id number] STERILZED 07/10/24 6mmx2.1mm Screw Implanted:Qty: 2 on 07/14/2024 by Arnaud Cuellar DMD at [facility] Screw N/A: Mandible J&J- DEPUY SYNTHES 04.511.2 36.01 / / Description:1X ADD JM LOAD# [id number] STERILZED 07/10/24 Tmj Bone Screw 2.0mm X 6mm Implanted:Qty: 1 on 07/14/2024 by Arnaud Cuellar DMD at [facility] Left: Mandible BETHANY- CMF fka LEIBINGER 61-2005 / / Description:1X ADD JM, NO CH ARGE PART OF IMPLANT LOAD# [id number] STERILZED 07/13/24 Tmj Bone Screw 2.0mm X 8mm Implanted:Qty: 2 on 07/14/2024 by Arnaud Cuellar DMD at [facility] Left: Mandible BETHANY- CMF fka LEIBINGER 61 / / Description:1X ADD JM, PART OF IMPLANT NO CHARGE LOAD # [id number] STERILZED 07/13/24 Tmj Bone Screw 2.0mm X 10mm Implanted:Qty: 7 on 07/14/2024 by Arnaud Cuellar DMD at [facility] Left: Mandible BETHANY- CMF fka LEIBINGER 61 / / Description:1X ADD JM, PART OF IMPLANT NO CHARGE LOAD# [id number] STERILZED 07/13/24 Tmj Bone Screw 2.3mm X 10mm Implanted:Qty: 1 on 07/14/2024 by Arnaud Cuellar DMD at [facility] Right: Mandible BETHANY- CMF fka LEIBINGER 61 / / Description:1X ADD JM. NO CH ARGE PART OF IMPLANT LOAD# [id number] STERILZED 07/13/24 Tmj Bone Screw 2.0mm X 6mm Implanted:Qty: 1 on 07/14/2024 by Arnaud Cuellar DMD at [facility] Right: Mandible BETHANY- CMF fka LEIBINGER / / Description:1X ADD JM, PART OF IMPLANT NO CHARGE JM LOAD# [id number] STERILZED 07/13/24 Tmj Bone Screw 2.0mm X 8mm Implanted:Qty: 3 on 07/14/2024 by Arnaud Cuellar DMD at [facility] Right: Mandible BETHANY- CMF fka LEIBINGER 61 / / Description:1X ADD JM, PART OF IMPLANT NO CHARGE JM LOAD # [id number] STERILZED 07/13/24 Tmj Bone Screw 2.0mm X 10mm Implanted:Qty: 5 on 07/14/2024 by Arnaud Cuellar DMD at [facility] Right: Mandible BETHANY- CMF fknaun JOSUEER 61-2009 / / Description:1X ADD JM, PART OF IMPLANT NO CHARGE LOAD# [id number] STERILZED 07/13/24 6mm Screw Sd Implanted:Qty: 18 on 07/14/2024 by Arnaud Cuellar, JESSICA at [facility] N/A: Mandible J&J- DEPUY SYNTHES .511.2 26. / / Description:1X ADD JM LOAD# [id number] STERILZED 07/09/24 8mm Screw Sd Implanted:Qty: 13 on 07/14/2024 by Arnaud Cuellar, DMD at [facility] N/A: Mandible J&J- DEPUY SYNTHES .511.2 28. / / Description:1X ADD JM LOAD# [id number] STERILZED 07/09/24 Insurance [facility] Address: [facility] [address] [place] [address] [facility] Address: [facility] [place] [address] [facility] Address: [address] [place] [address] [facility] ([place], [place]) Express Care Teams Parlor Chaperone Relationship Specialty Start Date End Date Didi Donohue DO PCP - General 04/23/09 Darshan Rosenthal [facility] 06/08/24
--- OUTSIDE RECORDS SUMMARY | 2025-01-27 20:42 | XMS_ITS | Encounter Summary ---
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
--- OUTSIDE RECORDS SUMMARY | 2025-01-27 20:42 | XMS_ITS | Clinical Summary ---
Author Organization [facility] Address [address] [place] [address] Care Team Providers Care Review Engineer Name Role Phone Dunia Simons MD Unavailable [phone] Dunia Simons MD Unavailable [phone] Darshan Suarez MD Primary Care Provider [phone] Allergies Active Allergy Reactions Criticality Noted Date Comments Ibuprofen Other (See comments) Low 07/17/2024 Pt had a R-N-Y in 2021 and should not use motrin NOTE: changed the NSAID allergy to only motrin Medications acetaminophen (TYLENOL) 500 mg tablet as needed 10/01/19 22 Active atomoxetine (STRATTERA) 60 mg capsule Take 1 capsule (60 mg total) by mouth daily 01/24/20 23 Active sildenafiL, pulm.hypertension, (REVATIO) 20 mg tabletIndications: Pulmonary Arterial Hypertension Take 1 tablet (20 mg total) by mouth daily 90 tablet 1 04/30/19 24 Active atogepant (Qulipta) 60 mg tablet 05/20/19 24 Active ondansetron (ZOFRAN) 8 mg tablet Take 1 tablet (8 mg total) by mouth as needed for nausea or vomiting Active fluvoxaMINE 150 mg capsule,extended release 24hr 04/16/19 24 Active estrogens, conjugated, (Premarin) vaginal cream Insert 0.5 g into the vagina 3 (three) times a week 30 g 3 10/18/19 24 Active gabapentin (NEURONTIN) 300 mg capsuleIndications :RLS (restless legs syndrome),Chronic midline low back pain without sciatica TAKE 2 CAPSULES(600 MG) BY MOUTH THREE TIMES DAILY 270 capsule 11/27/19 24 Active ondansetron ODT (ZOFRAN-ODT) 4 mg disintegrating tablet 01/25/20 24 Active fluvoxaMINE 100 mg capsule,extended release 24hr TAKE 2 CAPSULES BY MOUTH DAILY. TO EQUAL 200 MG FOR 7 DAYS THEN. INCREASE 05/13/19 25 Active triamcinolone (KENALOG) 0.025 % cream 09/04/19 24 Active omeprazole (PriLOSEC) 20 mg capsule Take 1 capsule (20 mg total) by mouth daily 30 capsule 11 11/19/19 25 026 Active testosterone 50 mg/5 gram (1 %) Apply 0.5g of gel (transdermal 1% testosterone gel) topically to skin daily; make sure gel is well rubbed in to skin 150 g 1 01/28/20 25 Active estradioL (CLIMARA) 0.05 mg/[address] 1 patch on the skin once a week for 7 days 4 patch 11 01/28/20 25 026 Active estradioL (CLIMARA) 0.05 mg/[address] 1 patch on the skin once a week for 7 days 4 patch 11 12/10/19 25 025 Discontin ued(Reord er) testosterone 50 mg/5 gram (1 %) Apply 5mg (testosterone)/ 0.5g (transdermal 1% gel) topically to skin daily; make sure gel is well rubbed in to skin 150 g 1 12/22/19 25 025 Discontin ued(Reord er) testosterone 50 mg/5 gram (1 %) Apply 5mg (testosterone)/ 0.5g (transdermal 1% gel) topically to skin daily; make sure gel is well rubbed in to skin 150 g 1 01/28/20 25 025 Discontin ued(Reord er) Hospital, Clinic, or Other Facility Administered Medication Ordered Dose Route Frequency Start Date End Date Status levonorgestreL (MIRENA) 20 mcg/24 hours (6 yrs) 52 mg IUDIndications:Enc ounter for insertion of Mirena IUD intrauterine Continuous (implanted device) 08/15/2020 Active Active Problems Problem Noted Date Diagnosed Date Premature ovarian failure 12/09/2024 Hypoactive sexual desire disorder 12/09/2024 Premature menopause on HRT 12/09/2024 Hieu-Danlos, 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 The patient's sleep apnea was very mild. It did inform her that we could do another sleep study to confirm there is no sleep apnea. The patient would like to hold off at this time but will call in if there is any snoring or change in sleep patterns. Assessment & Plan (01/21/2024 9:33 AM BENEFITS REPRESENTATIVE): I have provided the patient with a sample CPAP mask to see if this will help with the TMJ pain. I have informed the patient that if she does like the mask to let [facility] know the style of mask and also the size. The patient continue to wear CPAP at auto titrating range of 5-15 cm water pressure while sleeping. Her DME is [facility] Assessment & Plan (09/19/2023 9:04 AM CDT): Patient continue to wear her CPAP in auto titrating range of 5-15 cm water pressure while sleeping. Her DME is [facility] home care. Hypersomnia 05/31/2023 Assessment & Plan (05/31/2023 10:23 AM CDT): I have ordered an in-lab nocturnal polysomnogram split night protocol if necessary, no MSLT. Raynaud's phenomenon without gangrene 04/09/2023 Assessment & Plan (04/09/2023 12:12 PM BENEFITS REPRESENTATIVE): - uncontrolled - ref to rheum for eval - trial on sildenafil daily - f/u in 3 mo Angular cheilitis 03/19/2023 Assessment & Plan (03/19/2023 12:40 PM BENEFITS REPRESENTATIVE): - unclear etiology but suspect fungal with frequent drooling at night due to life guard - tx with antifungal, if no improvement will switch to steroid vs nystatin. RLS (restless legs syndrome) 10/17/2022 Assessment & Plan (04/09/2023 12:13 PM BENEFITS REPRESENTATIVE): - uncontrolled - wean off gabapentin - start requip 0.25mg tid - f/u in 3 mo Assessment & Plan (03/19/2023 12:38 PM BENEFITS REPRESENTATIVE): - stable - continue gabapentin at current dose - consider switch to pregabalin Assessment & Plan (01/16/2023 10:19 AM BENEFITS REPRESENTATIVE): - stable - continue current medications - if continues to have grogginess in next few weeks will consider switching to pregabalin Assessment & Plan (10/17/2022 10:58 AM CDT): - uncontrolled - increase gabapentin to 300mg qam, 900mg qpm, may add 600mg qlunch if needed - f/u in 3 mo, if no improvement will start requip. Protein-calorie malnutrition 09/28/2022 Bariatric surgery status 09/28/2022 DDD (degenerative disc disease), lumbar-L4/L5, L 5/S1 11/27/2021 Osteoarthritis 08/01/2021 Assessment & Plan (08/17/2021 4:23 PM CDT): - stable - continue current medication MIGUEL (generalized anxiety disorder) 07/10/2021 Assessment & Plan (03/19/2023 12:37 PM BENEFITS REPRESENTATIVE): - stable - continue current medication Assessment & Plan (01/16/2023 10:19 AM BENEFITS REPRESENTATIVE): - stable - continue current medication Assessment & Plan (10/17/2022 10:57 AM CDT): - stable but would benefit from change to cymbalta - pt to discuss with her psychiatrist Assessment & Plan (08/17/2021 4:23 PM CDT): - stable - continue current medication Assessment & Plan (07/10/2021 4:47 PM CDT): - stable but pt interested in switching due to not completely controlling anxiety - will stop lexapro - start cymbalta with hopes of helping anxiety and improving TMJ pain - f/u in 2 mo RUQ abdominal pain 03/17/2021 Assessment & Plan (03/17/2021 1:40 PM BENEFITS REPRESENTATIVE): - likely cholelithiasis based on hx - will get US of RUQ - if pos will send to gen surg for cholecystectomy Gastroesophageal reflux disease 03/17/2021 Assessment & Plan (10/17/2022 10:57 AM CDT): - stable - continue current medication Assessment & Plan (08/17/2021 4:22 PM CDT): - stable - continue current medication Assessment & Plan (03/17/2021 1:39 PM BENEFITS REPRESENTATIVE): - uncontrolled - increase nexium to 40mg daily - f/u prn Numbness 04/25/2020 Cervical radiculopathy 04/11/2020 Assessment & Plan (03/19/2023 12:37 PM BENEFITS REPRESENTATIVE): - discussed risks of high dose of flexeril above FDA approved dose - rec stopping flexeril and start robaxin 500mg qid - f/u in 3-6 mo Assessment & Plan (08/17/2021 4:23 PM CDT): - stable - continue current medication - will change gabapentin to liquid to aid with swallowing after surgery Assessment & Plan (04/11/2020 4:53 PM BENEFITS REPRESENTATIVE): - check MRI, xray of cervical region - send for EMG to determine cause of numbness in hands/arms - continue PT and robaxin TMJ (temporomandibular joint syndrome) Assessment & Plan (03/19/2023 12:37 PM BENEFITS REPRESENTATIVE): - stable - continue current medication Assessment & Plan (10/17/2022 10:58 AM CDT): - stable - continue current medication Assessment & Plan (07/10/2021 4:46 PM CDT): - uncontrolled - will stop ibuprofen and start celebrex - f/u in 2 mo Assessment & Plan (08/29/2020 3:02 PM CDT): - uncontrolled - f/u with surgery next month Assessment & Plan (04/11/2020 4:52 PM BENEFITS REPRESENTATIVE): - uncontrolled - f/u with oral surgery as planned. Assessment & Plan (02/29/2020 4:11 PM BENEFITS REPRESENTATIVE): - uncontrolled - ref to PT Intractable migraine with aura without status mi grainosus 02/03/2020 Assessment & Plan (10/17/2022 10:57 AM CDT): - stable - continue current medication Assessment & Plan (12/06/2020 11:11 AM CDT): Patient has no significant reduction in migraine frequency with substitution of propranolol for topiramate. In addition previous adverse effects experience with topiramate have resolved. She does find that supplemental rizatriptan used as an abortive works well. She is in need of renewal of both the propranolol and rizatriptan at this time. I have renewed her propranolol at 20 mg b.i.d. and rizatriptan at 5 mg b.i.d. p.r.n.. She will follow-up in neurology clinic in 1 year. Assessment & Plan (08/29/2020 3:02 PM CDT): - uncontrolled but slightly improved - continue current meds - get jaw surgery as planned - f/u in September for Botox if desires to continue botox - consider amovig in future if decides not to do botox Assessment & Plan (07/07/2020 4:38 PM CDT): - Botox sample injected per protocol as noted above. - No complications - Follow up in 12 weeks for repeat injections or sooner if complications develop - Pt to go to ER if any rare severe post injection symptoms (dyspnea, muscle pain, dysphagia, cough, signs of infection, etc) develop. Assessment & Plan (04/11/2020 4:52 PM BENEFITS REPRESENTATIVE): - uncontrolled - consider botox for migraine - pt to wait to see if oral surgery can improve TMJ first Assessment & Plan (02/29/2020 4:11 PM BENEFITS REPRESENTATIVE): - uncontrolled - continue topamax, trial increased dose to 100mg bid - continue B2 and magnesium - add imitrex prn and zofran for nausea - f/u in 3 mo Assessment & Plan (02/03/2020 4:34 PM BENEFITS REPRESENTATIVE): - uncontrolled - start topamax 25mg qhs, increase to 50mg bid over next couple weeks - start magnesium 250mg daily, increase to bid if tolerated - start vit B2 400mg daily - f/u in 1 mo Chronic midline low back pain without sciatica 0 09/30/2019 Assessment & Plan (01/16/2023 10:20 AM BENEFITS REPRESENTATIVE): - stable - continue current medication but consider switch to pregabalin if continues to have grogginess Assessment & Plan (10/17/2022 10:55 AM CDT): - uncontrolled - increase gabapentin to 300mg qam, 900mg qhs; may take up to 600mg qlunch if needed Assessment & Plan (09/30/2019 4:34 PM CDT): - muscle spasm in lower lumbar region with R SI joint dysfunction - change tizanidine to robaxin, continue naproxen 500mg BID - encouraged regular exercise, consider swimming - continue PT - f/u in 3 mo - pt to call sooner if she decides she wants to go to pain management (will need MRI first) Vitamin D deficiency 12/24/2013 Overview (05/24/2016): Vitamin D deficiency Atopic rhinitis 07/04/2013 Overview (05/23/2016): Allergic rhinitis Attention deficit disorder (ADD) without hyperac tivity 07/04/2013 Overview (05/24/2016): ADD (attention deficit disorder) Depression 05/01/2012 Overview (05/24/2016): Depression Assessment & Plan (01/16/2023 10:20 AM BENEFITS REPRESENTATIVE): - stable - continue current medication Other specified anxiety disorders 05/01/2012 Overview (05/24/2016): Anxiety Assessment & Plan (08/29/2020 3:02 PM CDT): - stable - continue current medication Assessment & Plan (09/30/2019 4:34 PM CDT): - stable - controlled with stress management Gall stones Resolved Problems Problem Noted Date Diagnosed Date Resolved Date BMI 39.0-39.9,adult 03/27/2022 01/16/20 23 Trochanteric bursitis of left hip 11/27/2021 04/28/2024 Morbid obesity 09/29/2021 03/27/2022 BMI 50.0-59.9, adult 08/01/2021 023 Morbid obesity due to excess calories 08/01/2021 03/27/2022 SI (sacroiliac) joint dysfunction 12/26/2020 04/28/2024 Assessment & Plan (12/26/2020 10:12 PM BENEFITS REPRESENTATIVE): - uncontrolled - continue robaxin - add gabapentin - start at night, can increase to bid or 600mg qhs - ref to PT Acute nasopharyngitis 08/16/20202024 Assessment & Plan (08/16/2020 3:26 PM CDT): - prednisone burst, mucenex D - continue zyrtec and flonase - f/u if sx not improved Migraine without aura and wi thout status migrainosus, not intractable 06/14/2020 07/07/2020 Assessment & Plan (06/14/2020 10:46 AM CDT): Patient describes recurrent headaches with clinical characteristics and historical characteristics consistent with migraine without aura including throbbing character, light noise sensitivity, neck pain. She has had untoward tolerability issues with topiramate and sumatriptan to date. Given the frequency of headaches I would like her to have an MRI of the brain performed to exclude any structural etiologies to account for her frequent headache. Will also substitute for the topiramate and sumatriptan propranolol 20 mg b.i.d. for migraine prophylaxis and rizatriptan 5 mg b.i.d. p.r.n. for abortive breakthrough. I will see her back in office in 6 months time for reassessment. Snoring 05/19/2020 09/19/2023 Assessment & Plan (05/19/2020 2:43 PM CDT): The patient presents with snoring and daytime hypersomnia. I have recommended proceeding with a home sleep test since she has [employer] insurance COVID-19 02/03/2020 03/17/2021 Assessment & Plan (02/03/2020 4:35 PM BENEFITS REPRESENTATIVE): - stable - discussed course of COVID 19 - go to ER for any SOB or inability to care for self/take PO Annual physical exam 09/30/2019 022 Assessment & Plan (05/15/2021 5:56 PM CDT): - Reviewed with the patient BMI, blood pressure, diet, exercise, and encouraged healthy lifestyle choices. - Screened for high risk behaviors, diet and exercise habits, and symptoms of depression. 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 for pap Class 3 severe obesity due t o excess calories without serious comorbidity with body mass index (BMI) of 50.0 to 59.9 in adult 02/20/201208/2022 Overview (05/24/2016): Obesity Assessment & Plan (08/17/2021 4:23 PM CDT): - f/u with bariatric surgery Assessment & Plan (07/10/2021 4:46 PM CDT): - continue current medication - f/u with bariatric medicine Assessment & Plan (05/15/2021 5:58 PM CDT): - discussed counting calories, use of No[employer] and My[employer]itness Pal, possible medications, consideration for bariatric surgery - will check thyroid hormone though it has been normal in the past - pt unable to tolerate phentermine - will add wellbutrin sr 150mg bid - ref to bariatric surgery - consider addition of naltrexone in future - f/u in 2 mo Assessment & Plan (08/29/2020 3:01 PM CDT): - healthy diet and regular exercise for weight loss Assessment & Plan (04/11/2020 4:51 PM BENEFITS REPRESENTATIVE): - encouraged healthy diet and regular exercise for weight loss Assessment & Plan (02/29/2020 4:10 PM BENEFITS REPRESENTATIVE): - recommend weight loss via diet and exercise Encounters Date Type Department Care Team Description 01/27/2025 Orders Only [facility] Medical [facility] Obstetrical Gynecology [address] [place] [phone] Tushar Murry MD 01/27/2025 Orders Only [facility] Medical [facility] Obstetrical Gynecology [address] [place] [address] [place] [address] Tushar Murry MD 01/21/2025 9:15 AM BENEFITS REPRESENTATIVE Office Visit [facility] Pulmonary [place] [address] [facility] [address] [place] [address] Carline Skinner NP Obstructive sleep apnea (Primary Dx) 12/22/2024 Telephone [facility] Obstetrical Gynecology [address] [place] [address] [place] [address] Tushar Murry MD 12/09/2024 11:45 AM CDT Office Visit [facility] Obstetrical Gynecology [facility] [facility] [address] [place] [address] Tushar Murry MD Hypoactive sexual desire disorder (Primary Dx); Premature ovarian failure; Premature menopause on HRT 11/26/2024 Results Follow-Up [facility] Medicine Gastroenterology [address] [facility] [address] [place] [phone] Krish Skinner MD C. difficile testing Stool, Stool culture Stool, Cryptosporidium and Giardia antigen assay Stool 11/26/2024 Orders Only [facility] Medicine Gastroenterology [address] [facility] 2nd Floor [address] [place] [address] Lexus Ramos LPN Anemia, unspecified type (Primary Dx) 11/23/2024 12:54 PM CDT - 11/23/2024 11:59 PM CDT Hospital [facility] Medical Office Building [address] [place] [address] Krish Skinner MD Diarrhea, unspecified type; Dyspepsia Discharge Disposition: Discharge to home or self care 11/20/2024 Results Follow-Up [facility] Medicine Gastroenterology [address] [facility] 12th [place] [address] [place] [address] Joanne Solis PA IgA, Tissue transglutaminase IgA (TGG-IgA Ab), Allergen Alpha-gal (food) IgE, Additional followed-up results: 7 11/18/2024 4:15 PM CDT Lab [facility] [address] [place] [address] Diarrhea, unspecified type; Dyspepsia 11/18/2024 1:00 PM CDT Office Visit [facility] Medicine Gastroenterology [address] [facility] [address] [place] [address] [place] [address] Joanne Solis PA Diarrhea, unspecified type (Primary Dx); Nausea; Dyspepsia; Encounter for screening colonoscopy from Last 3 Months Immunizations Immunization Administration Dates Next Due Influenza, Quadrivalent, Spl it, Preservative Free, Intramuscular 01/08/2023,12/26/2020 Influenza, Trivalent, IM (MDV) 4,11/18/2012,11/19/2011,11/18 Influenza, Unspecified 11/18/2021(Deferr ed: Patient Refused),11/18/2016 Pfizer SARS-CoV-2 Monovalent Vaccination (12+ Yrs) PURPLE 01/31/2021,04/13/2020,03/15/2020 Td, adsorbed 02/18/2011 Tdap 02/19/2008 Surgical History Surgery Date Site/Laterality Comments TONSILLECTOMY 02/18/2006 - 02/17/2007 KNEE ARTHROSCOPY 02/19/2008 - 02/17/2009 Right ADENOIDECTOMY 02/18/2006 - 02/17/2007 WISDOM TOOTH EXTRACTION 02/18/2005 - 02/17/2006 KNEE SURGERY Right TEMPOROMANDIBULAR JOINT SURGERY KNEE ARTHROSCOPY W/ LATERAL RELEASE CHOLECYSTECTOMY 09/29/2021 ETHEL-EN-Y PROCEDURE 09/29/2021 LAPAROSCOPIC GASTRIC BYPASS 09/18/2021 - 10/18/2021 GASTRIC BYPASS 02/18/2021 - 02/17/2022 Medical History Medical History Date Comments Tear of meniscus of right knee, subsequent encou nter 2008 Mitral regurgitation Seizure (HCC) remote Adhd Anxiety and depression Anemia Mitral valve prolapse Premature ovarian failure Allergic rhinitis Dizziness Tinnitus Migraine TMJ (dislocation of temporomandibular joint) Cervical radiculopathy Menstrual problem 2016 DDD (degenerative disc disease), lumbar 02/28/19 22 L4-L5, L5-S1 BMI 45.0-49.9, adult (HCC) 02/28/2021 Gall stones PONV (postoperative nausea and vomiting) Motion sickness Hyperlipidemia Sinusitis Obstructive sleep apnea 09/19/2023 Hieu-Danlos disease Family History Medical History Relation Name Comments Asthma Daughter Lisa Ochoa Allergies Father Anson Castelan Allergies; Arthritis Father Anson Theros Gout Father Anson Theros Obesity Father Anson Theros Osteoarthritis Father Anson Therjuan manuel Rheum arthritis Father Anson Castelan COPD Maternal Grandmother Tahira Melo Heart disease Maternal Grandmother Tahira Melo Allergies Mother Thais Alexandra Allergies; Asthma Mother Thais Alexandra Asthma; Cancer Mother Thais Alexandra Depression Mother Thais Alexandra Depression; Diabetes Mother Thais Alexandra Diabetes mellit us; Hyperlipidemia Mother Thais Alexandra Hyperlipidemi a; Kidney cancer Mother Thais Alexandra Cancer -renal cell; Miscarriages / Stillbirths Mother Thais Alexandra Obesity Mother Thais Alexandra Osteoarthritis Mother Thais Alexandra Rashes / Skin problems Mother Thais Alexandra Thyroid disease Mother Thais Alexandra Thyroid diso rder; Breast cancer Paternal Grandmother Leidy Castelan Diabetes Paternal Grandmother Leidy Castelan Asthma Sister Jamila Castelan Asthma; Learning disabilities Son Jarred Heatonos Rashes / Skin problems Son Jarred Castelan Anesthesia problems Neg Hx Colon cancer Neg Hx Esophageal cancer Neg Hx Liver cancer Neg Hx Ovarian cancer Neg Hx Pancreatic cancer Neg Hx Prostate cancer Neg Hx Uterine cancer Neg Hx Relation Name Status Comments Daughter Lisa Ochoa Father Anson Castelan Alive Maternal Grandmother Tahira Melo Mother Thais Alexandra Alive Paternal Grandmother Leidy Castelan Sister Jamila Castelan Alive Son Jarred Castelan Social History Tobacco Use Types Packs/Day Years Used Date Smoking Tobacco: Former Cigarettes 0.5 5 0 05/20/2007 - 05/19/2012 Smokeless Tobacco: Never Tobacco Cessation:Counseling Given: Not Answered Alcohol Use Standard Drinks/Week Comments Yes 3 (1 standard drink = 0.6 oz pur e alcohol) AUDIT-C Answer Date Recorded Q1: How often do you have a drink containing alc ohol? 2-4 times a month 09/19/2023 Q2: How many drinks containi ng alcohol do you have on a typical day when you are drinking? 1 or 2 09/19/2023 Q3: How often do you have si x or more drinks on one occasion? Never 09/19/2023 PHQ-2 Answer Date Recorded PHQ-2 Total Score (If total score is 3 or more points, staff should administer the PHQ-9) 0 10/17/2022 Personal Safety Answer Date Recorded Have you ever been in or are you currently in a harmful physical or emotional relationship or is someone making you feel afraid or unsafe? 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 Not on file Obstetrics History Para Term AB IAB SAB Ectopic Multiple Livin g Live Births 2 2 2 2 2 Date Outcome GA Total Labor Labor/2nd/3rd Weight Sex Type Anes PTL Christie A1 A5 Name Clin 2001 Term 40w 0d 3.856 kg (8 lb 8 oz) M Vag-S pont Living Complications:None 2015 Term 41w 0d 3.118 kg (6 lb 14 oz) F Vag-S pont Living Complications:None Last Filed Vital Signs Vital Sign Reading Time Taken Comments Blood Pressure 120/78 01/21/2025 9:27 AM BENEFITS REPRESENTATIVE Pulse 78 01/21/2025 9:27 AM BENEFITS REPRESENTATIVE Temperature 35.8 C (96.4 F) 01/21/2025 9:27 AM BENEFITS REPRESENTATIVE Respiratory Rate 16 01/21/2025 9:27 AM BENEFITS REPRESENTATIVE Oxygen Saturation 98% 01/21/2025 9:27 AM BENEFITS REPRESENTATIVE Inhaled Oxygen Concentration - - Weight 73.5 kg (162 lb) 01/21/2025 9:27 AM BENEFITS REPRESENTATIVE Height 157.5 cm (5' 2) 01/21/2025 9:27 AM BENEFITS REPRESENTATIVE Body Mass Index 29.63 01/21/2025 9:27 AM BENEFITS REPRESENTATIVE Plan of Treatment Health Maintenance Due Date Last Done Comments HPV Vaccines (3 - 3-dose series) 03/30/2010 01/05/2010, 12/02/2009, 01/21/2009 DTaP/Tdap/Td Vaccine (4 - Td or Tdap) 02/18/2021 02/18/2011, 01/21/2009, 02/19/2008 Depression Screening 10/18/2023 10/17/2022, 09/04/2021, 09/04/2021, Additional history exists Cervical Cancer Screening 04/10/20242023, 04/10/2023, 03/03/2020, Additional history exists Covid-19 Vaccine ( season) 2024 01/08/2023, 01/31/2021, 04/13/2020, Additional history exists Influenza Vaccine (#1) 2024 , 01/08/2023, 12/26/2020, Additional history exists Regular Well Visit/Exam 18-64 05/20/2025 05/20/2024, 04/10/2023, 11/03/2021, Additional history exists Breast Cancer Screening-Mammogram 05/21/2025 05/21/2024, 01/05/2016 Hepatitis B Screening Completed 06/08/2010 , 01/05/2010, 12/02/2009 Hepatitis C Screening Completed 07/29/2018 Pneumococcal vaccine <65 Aged Out No longer eligible based on patient's age to complete this topic Varicella Vaccines Discontinued Procedures Procedure Name Priority Date/Time Associated Diagnosis Comments CALPROTECTIN, FECAL Routine 11/23/2024 11:13 AM CDT PANCREATIC ELASTASE, STOOL Routine 11/23/2024 11:13 AM CDT CRYPTOSPORIDIUM AND GIARDIA ANTIGEN ASSAY Routine 11/23/2024 11:13 AM CDT STOOL CULTURE Routine 11/23/2024 11:13 AM CDT C. DIFFICILE TESTING Routine 11/23/2024 11:13 AM CDT EGFR Routine 11/18/2024 1:47 PM CDT Diarrhea, unspecified type Dyspepsia DIFFERENTIAL AUTO Routine 11/18/2024 1:4 7 PM CDT Diarrhea, unspecified type Dyspepsia CBC WITH AUTO DIFFERENTIAL Routine 11/18/2024 1:47 PM CDT Diarrhea, unspecified type Dyspepsia COMPREHENSIVE METABOLIC PANEL Routine 11/18/2024 1:47 PM CDT Diarrhea, unspecified type Dyspepsia LIPASE Routine 11/18/2024 1:47 PM CDT Diarrhea, unspecified type Dyspepsia TSH Routine 11/18/2024 1:47 PM CDT Diarrhea, unspecified type Dyspepsia TRYPTASE Routine 11/18/2024 1:47 PM CDT Diarrhea, unspecified type Dyspepsia ALLERGEN ALPHA-GAL (FOOD) IGE Routine 11/18/2024 1:47 PM CDT Diarrhea, unspecified type Dyspepsia TISSUE TRANSGLUTAMINASE, IGA Routine 11/18/2024 1:47 PM CDT Diarrhea, unspecified type Dyspepsia IGA Routine 11/18/2024 1:47 PM CDT Diarrhea, unspecified type Dyspepsia SCREENING MAMMOGRAM BILATERAL W ESTEBAN Schedule Routine, Read Routine (OP Routine) 05/21/2024 10:28 AM CDT Encounter for screening mammogram for malignant neoplasm of breast HIGH RISK HPV DNA DETECTION WITH GENOTYPING Routine 04/10/2023 3:26 PM BENEFITS REPRESENTATIVE Well woman exam with routine gynecological exam HEPATITIS C ANTIBODY Routine 07/29/2018 12:22 PM CDT from Last 3 Months or Most Recently Relevant to Health Maintenance Results * C. difficile testing Stool (11/23/2024 11:13 AM CDT) C. diff result Negative, DNA Negative , DNA Comment:Testing performed by : [facility], [address] [place] [address], [place] [address] C. diff interp Negative for toxigenic Clostridioides (Clostridium) difficile. Analysis performed by detection of gene(s) encoding C. difficile toxin(s). The nucleic acid detection assay used is cleared by the US Food and Drug administration and its performance characteristics have been verified by the performing laboratory. CÉSAR Comment:Testing performed by : [facility], [address] [place] [address]., [address] Stool 11/23/2024 11:1 3 AM CDT 11/23/2024 7:26 PM CDT Krish Skinner MD LAB MICROBIOLOGY - GE NERAL ORDERABLES Final Result Performing Organization Address [facility] de Phone Number MARYANMALLORY [address] [facility] Department [place] [address] * (ABNORMAL) Calprotectin, fecal (11/23/2024 11:13 AM CDT) Calprotectin, fecal 52.5(H) <50.0 (Normal) mcg/g Jose ref Lab Comment: Interpretation: Borderline (50.0-120 mcg/g) Test Performed by: [facility] [address] [place] [address] Collision Repairer: Ovidio Moffett Ph.D.; CLIA# [id number] Testing performed by: [facility], [address] [place] [address]., [address] Stool 11/23/2024 11:1 3 AM CDT 11/23/2024 7:27 PM CDT Krish Skinner MD LAB BODY FLUIDS AND S TOOLS ORDERABLES Final Result Performing Organization Address [facility] Co de Phone Number [place] [id number] [facility] Department [place] [address] [facility] * Cryptosporidium and Giardia antigen assay Stool (11/23/2024 11:13 AM CDT) Giardia Ag Negative Negative Comment:Testing performed by : [facility], [address] [facility] [place]., [address] Cryptosporidium Ag Negative Negative CÉSAR Comment: Interpretive data: Testing performed by the [facility] using an immunoassay that detects Cryptosporidium and Giardia antigens in stool specimens. If comprehensive examination for ova and parasites is required, please request Ova and Parasite Examination. Testing performed by: [facility], [address] [place] [address] Stool 11/23/2024 11:1 3 AM CDT 11/24/2024 12:01 AM CDT Krish Skinner MD LAB MICROBIOLOGY - GE NERAL ORDERABLES Final Result Performing Organization Address [facility] Co de Phone Number CÉSAR [facility] [place] [address] * Pancreatic elastase, stool (11/23/2024 11:13 AM CDT) Pancreatic elastase, stool 483 >200 (Normal) mcg/g Walker ref Lab Comment: Test Performed by: [place] [address] Collision Repairer: Ovidio Moffett Ph.D.; CLIA# [id number] Testing performed by: [facility], [address] [place] [address]., [address] Stool 11/23/2024 11:1 3 AM CDT 11/23/2024 7:27 PM CDT Krish Skinner MD LAB BODY FLUIDS AND S TOOLS ORDERABLES Final Result Performing Organization Address [facility] de Phone Number [address] [place] [address] [facility] * Stool culture Stool (11/23/2024 11:13 AM CDT) Direct Specimen Exam Shiga Toxin Testing: Antigen detection assay for Shiga-toxin NEGATIVE for Shiga Toxin 1 and Shiga Toxin 2. Comment:Testing performed by : [facility], [address] [place] [address], [place]., [address] Report Final Report: No growth of enteric bacterial pathogens CÉSAR Comment:Testing performed by : [facility], [address] [place] [address], [place]., [address] Stool 11/23/2024 11:1 3 AM CDT 11/24/2024 12:01 AM CDT Narrative CÉSAR [facility] 11/28/2024 9:40 AM CDT Testing performed by [facility] ([phone]). Routine stool cultures include procedures to detect Salmonella, Shigella, Edwardsiella, Aeromonas, Pleisiomonas, Campylobacter, Yersinia, E. coli O157, and Shiga-like toxins. Vibrio is cultured only upon special request. If Vibrio is suspected, please call the laboratory at [phone]. Interpretive data was last updated June 25, 2016. Krish Skinner MD LAB MICROBIOLOGY - GE NERAL ORDERABLES Final Result CÉSAR [facility] Department [place] [address] * Allergen Alpha-gal (food) IgE (11/18/2024 1:47 PM CDT) Alpha-gal IgE <0.10 0.00 - 0.34 kUnits/L Blood 11/18/2024 1:47 PM CDT 11/18/2024 2:22 PM CDT Joanne JACK LAB BLOOD ORDERABLES Fi nal Result CÉSAR [facility] [place] [address] * eGFR (11/18/2024 1:47 PM CDT) eGFR >90 >=60 mL/min/1. 73 m2 Comment: Interpretive Data Reference Interval Normal >/= 90 mL/min/1.73m2 Mildly decreased* 60 - 89 mL/min/1.73m2 Mildly to moderately decreased 45 - 59 mL/min/1.73m2 Moderately to severely decreased 30 - 44 mL/min/1.73m2 Severely decreased 15 - 29 mL/min/1.73m2 Kidney Failure < 15 mL/min/1.73m2 *Relative to young adult level Estimated glomerular filtration rate is determined by the 2020 CKD-EPI equation recommended by the National Kidney [employer] (A Unifying Approach to GFR Estimation: Recommendations of the NKF-ASK Task Force on Reassessing the Inclusion of Race in Diagnosing Kidney Disease, JASN 2020). The CKD-EPI equation should not be used for patients with unstable renal function and has not been validated in children and those over 70. Current interpretive data was last reviewed 2020. Blood 11/18/2024 1:47 PM CDT 11/18/2024 2:33 PM CDT us Joanne JACK LAB BLOOD ORDERABLES Fi nal Result [facility] [address] [facility] [place] [address] * Differential, auto (11/18/2024 1:47 PM CDT) Neutrophil abs 6.02 1.50 - 6.50 K/cumm Imm gran abs 0.03 0.00 - 0.10 K/cumm [facility] Lymphocyte abs 2.65 0.80 - 3.30 K/cumm [facility] Monocyte abs 0.50 0.20 - 0.80 K/cumm [facility] Eosinophil abs 0.06 0.00 - 0.50 K/cumm [facility] Basophil abs 0.04 0.00 - 0.10 K/cumm [facility] Neutrophil pct 64.8 % [facility] Comment: Interpretive Data Percent cell count reference ranges are not reported, since discordance with absolute values may lead to misinterpretation of CBC data. Current Interpretive Data was last revised on 2017. Imm gran pct 0.3 % [facility] Comment: Interpretive Data Percent cell count reference ranges are not reported, since discordance with absolute values may lead to misinterpretation of CBC data. Current Interpretive Data was last revised on 2017. Lymphocyte pct 28.5 % [facility] Comment: Interpretive Data Percent cell count reference ranges are not reported, since discordance with absolute values may lead to misinterpretation of CBC data. Current Interpretive Data was last revised on 2017. Monocyte pct 5.4 % [facility] Comment: Interpretive Data Percent cell count reference ranges are not reported, since discordance with absolute values may lead to misinterpretation of CBC data. Current Interpretive Data was last revised on 2017. Eosinophil pct 0.6 % [facility] Comment: Interpretive Data Percent cell count reference ranges are not reported, since discordance with absolute values may lead to misinterpretation of CBC data. Current Interpretive Data was last revised on 2017. Basophil pct 0.4 % [facility] Comment: Interpretive Data Percent cell count reference ranges are not reported, since discordance with absolute values may lead to misinterpretation of CBC data. Current Interpretive Data was last revised on 2017. Blood 11/18/2024 1:47 PM CDT 11/18/2024 2:34 PM CDT Joanne JACK LAB BLOOD ORDERABLES nal Result [facility] [place] [address] * (ABNORMAL) CBC with auto differential (11/18/2024 1:47 PM CDT) WBC 9.30 3.80 - 9.90 K/cumm Hgb 11.5(L) 11.9 - 15.5 g/dL [facility] Hct 37.1 35.6 - 45.5 % [facility] Plt 289 150 - 400 K/cumm [facility] MPV 9.8 9.1 - 12.3 fL [facility] RBC 4.35 3.90 - 5.20 M/cumm [facility] MCV 85.3 81.3 - 96.4 fL [facility] MCH 26.4(L) 27.1 - 33.3 pg [facility] MCHC 31.0(L) 32.3 - 35.7 g/dL [facility] RDW CV 13.2 11.1 - 14.9 % [facility] RDW SD 41.4 35.7 - 48.1 fL [facility] NRBC abs 0.00 0.00 - 0.01 K/cumm [facility] Blood 11/18/2024 1:47 PM CDT 11/18/2024 2:34 PM CDT Joanne JACK LAB BLOOD ORDERABLES Fi nal Result Performing Organization Address [facility] de Phone Number [facility] [place] [address] * Tryptase (11/18/2024 1:47 PM CDT) Tryptase Level 3.6 <11.5 ng/mL Walker ref Lab Comment: Test Performed by: [place] [id number] [place] [address] Collision Repairer: Ovidio Moffett Ph.D.; CLIA# [id number] Blood 11/18/2024 1:47 PM CDT 11/18/2024 3:22 PM CDT Joanne JACK LAB BLOOD ORDERABLES Fi nal Result Performing Organization Address [facility] de Phone Number [facility] [place] [address] Walker ref Lab * Tissue transglutaminase IgA (TGG-IgA Ab) (11/18/2024 1:47 PM CDT) TTG ab, IgA <0.5 <=14.9 units/mL Comment: Interpretive data Negative: <15 units/mL Positive: > or equal to 15 units/mL Current interpretive data was last revised on 2016. Blood 11/18/2024 1:47 PM CDT 11/18/2024 2:22 PM CDT Joanne JACK LAB BLOOD ORDERAB[place] [address] * TSH (11/18/2024 1:47 PM CDT) Pathologist [facility] Thyroid Stimulating Hormone 1.05 0.30 - 4.20 mcIUnit/mL Blood 11/18/2024 1:47 PM CDT 11/18/2024 2:22 PM CDT Joanne JACK LAB BLOOD ORDERABLES Fi nal Result Performing Organization Address [facility] [place] [address] * Lipase (11/18/2024 1:47 PM CDT) [facility] Lipase 69 10 - 99 Units/L Blood 11/18/2024 1:47 PM CDT 11/18/2024 2:22 PM CDT Joanne JACK LAB BLOOD ORDERABLES Fi nal Result Performing Organization Address [facility] Co de Phone Number [facility] [place] [address] * IgA (11/18/2024 1:47 PM CDT) Pathologist [facility] Immunoglobulin A 126 70 - 400 mg/dL Blood 11/18/2024 1:47 PM CDT 11/18/2024 2:22 PM CDT Joanne JACK LAB BLOOD ORDERABLES Fi nal Result Performing Organization Address City[facility] [place] [address] * Comprehensive metabolic panel (11/18/2024 1:47 PM CDT) [facility] Sodium 144 135 - 145 mmol/L Potassium, pl 3.9 3.3 - 4.9 mmol/L [facility] Chloride 106 97 - 110 mmol/L [facility] CO2 27 22 - 32 mmol/L [facility] Anion gap 11 2 - 15 mmol/L [facility] BUN 11 6 - 25 mg/dL [facility] Creatinine 0.73 0.60 - 1.10 mg/dL [facility] Glucose 98 70 - 199 mg/dL [facility] Comment: Interpretive Data Fasting glucose >/= 126 mg/dl is diagnostic for diabetes. Fasting is defined as no caloric intake for at least 8 hours. Fasting glucose between 100 mg/dl to 125 mg/dl is diagnostic of prediabetes. In a patient with classic symptoms of hyperglycemia or hyperglycemic crisis, a random glucose >/= 200 mg/dl is diagnostic for diabetes. In the absence of unequivocal hyperglycemia, results should be confirmed by repeat testing. The classification and Diagnosis of Diabetes Diabetes Care 2021; 46: S19-S40. Current interpretive data was last revised 2022. Calcium 9.3 8.5 - 10.3 mg/dL [facility] Bilirubin, total 0.2 0.1 - 1.2 mg/dL [facility] Protein, pl 7.6 6.5 - 8.5 g/dL [facility] Albumin 4.6 3.5 - 5.0 g/dL [facility] Alk phos 87 40 - 130 Units/L [facility] ALT 18 7 - 45 Units/L [facility] AST 25 10 - 45 Units/L [facility] Blood 11/18/2024 1:47 PM CDT 11/18/2024 2:22 PM CDT us Joanne JACK LAB BLOOD ORDERABLES Fi nal Result [facility] Department [place] [address] * Screening Mammogram Bilateral W Esteban (05/21/2024 10:28 AM CDT) Anatomical Region Laterality Modality Breast Bilateral Mammography Impressions 05/21/2024 10:51 AM CDT BI-RADS ATLAS category (overall): 1 - Negative There is no mammographic evidence of malignancy. A 1 year screening mammogram is recommended. The patient has been or will be contacted. We recommend annual screening mammography for women at average risk of breast cancer beginning at age 40, based on guidelines of the [employer] (ACR Practice Parameter for the Performance of Screening and Diagnostic Mammography) and [employer]. For women with and elevated risk of breast cancer, please refer to the ACR Practice Parameter for specific screening recommendations. The patient will be entered into a reminder system with a target due date of 1 year for her next screening exam. Narrative 05/21/2024 10:51 AM CDT Screening Mammogram Bilateral W Esteban: 05/21/24 The study was acquired using full field digital technology and interpreted from soft copy. 2D digital mammographic views, as well as 3D digital tomosynthesis were performed in the CC and MLO projections. This study was resulted using Computer-Aided Detection (CAD). CLINICAL: Encounter for screening mammogram for malignant neoplasm of breast. No relevant medical history has been documented for this patient. History of breast cancer in Paternal Grandmother. COMPARISONS: 01/06/2016 Diagnostic Mammogram Bilateral W Esteban BREAST TISSUE: There are scattered areas of fibroglandular density. FINDINGS: No suspicious masses, suspicious calcifications, or other suspicious findings are seen within either breast. There has been no suspicious change. Tushar Murry MD IMG MAMMO PROCEDURES Fin al Result * High Risk HPV DNA Detection with Genotyping (Molecular component) (04/10/2023 3:26 PM BENEFITS REPRESENTATIVE) HPV HR 16 Not Detected Not Detected CÉSAR PAPPAS Comment:Testing performed by : [facility], [address] [place]., [address] HPV HR 18 Not Detected Not Detected CÉSAR PAPPAS Comment:Testing performed by : [facility], [address] [facility] [place]., [address] HPV HR Non 16/18 Not Detected Not Detected CÉSAR PAPPAS Comment: Interpretive Data Nucleic acid amplification for detection of high-risk Human Papilloma virus (HPV) is performed by the Colette Daisy 6800 HPV test. This assay specifically detects HPV-16 and HPV-18 genotypes. The following HPV genotypes are detected as high-risk HPV: HPV-31, 33, 35, ,39, 45, 51, 52, 56, 58, 59, 66, and 68. This assay has been approved by the [place] Food and Drug Administration for detection of HPV in cervical specimens collected by a physician using an endocervical brush/spatula or cervical broom and placed in the ThinPrep Pap Test PreservCyt collection containers. The performance characteristics of this test have been verified by the [facility] Molecular Infectious Disease laboratory. Correlate with separately reported cytology results, as applicable. Interpretive data last revised 22 Testing performed by: [facility], [address] [place]., [address] Endocervical 04/10/2023 3:26 PM BENEFITS REPRESENTATIVE 04/12/2023 2:24 PM BENEFITS REPRESENTATIVE Narrative [facility] 04/13/2023 3:21 AM BENEFITS REPRESENTATIVE Clinical history and diagnosis->LP: 2020 Number of vials->1 Testing type->Screening Last menstrual period (date if known)->IUD Serenity Wright MD LAB BODY FLUIDS AND STOOLS ORDERABLES Final Result [facility] [address] [facility] [place] [address] * Hepatitis C antibody (07/29/2018 12:22 PM CDT) Hep C Ab Nonreactive Nonreactive [facility] Comment: Interpretive Data Positive results should be confirmed by a molecular method. If positive, a second separately collected sample should be submitted for Hepatitis C Virus (HCV) RNA Detection and Quantitation by Real-Time Reverse Yarn Mercerizer Operator-PCR (RT-PCR). Current interpretive data was last revised on 2016. Blood specimen (specimen) 07/29/2018 12:22 PM CDT 07/29/2018 1:09 PM CDT Narrative CÉSAR [facility] - 07/30/2018 10:09 AM CDT Jessica Boateng MD LAB MICROBIOLOGY - GENER AL ORDERABLES Edited Result - Final CÉSAR [facility] [place] [address] from Last 3 Months or Most Recently Relevant to Health Maintenance Insurance [facility] Advance Directives For more information, please contact: [phone] * Full Code (Latest Code Status on File) Date Activated Date Inactivated Comments 09/19/2023 10:54 AM 09/19/2023 6:46 PM * Full Code Date Activated Date Inactivated Comments 10/02/2021 4:30 AM 10/04/2021 3:57 PM * Full Code Date Activated Date Inactivated Comments 10/02/2021 4:29 AM 10/02/2021 4:30 AM * Full Code Date Activated Date Inactivated Comments 09/29/2021 7:37 PM 09/30/2021 7:51 PM * Full Code Date Activated Date Inactivated Comments 01/12/2019 1:07 PM 01/12/2019 7:50 PM Care Teams Review Engineer Relationship Specialty Start Date End Date Darshan Suarez MD [address] [facility] [address] [place] [address] PCP - General Family Medicine 06/29/24 Dunia Simons MD [address] [facility] [address] [place] [address] 08/27/19 Dunia Simons MD [address] [facility] [address] [place] [address] 01/06/19
--- OUTSIDE RECORDS SUMMARY | 2025-01-27 20:42 | XMS_ITS | Clinical Summary ---
Author Organization [facility] Address [facility] [place] [address] Care Team Providers Care Career Development Specialist Name Role Phone Gabriel Rodriguez MD Primary Care Provider Unavaila ble Allergies No known active allergies Medications QULIPTA tablet Take 1 tablet (60 mg total) by mouth daily. Active atomoxetine (STRATTERA) 60 MG capsule 5 Active clobetasol (TEMOVATE) 0.05 % ointment Apply topically 2 (two) times daily. 4 Active Estradiol 1.25 MG/1.25GM Gel APPLY 1 PACKET (1.25 MG) ON THE SKIN NIGHTLY 4 Active conjugated estrogens (PREMARIN) 0.625 MG/GM vaginal cream Place 1 g vaginally. 5 09/12/19 26 Active fluvoxamine ER 150 MG CAPSULE SR 24 HR 24 hr capsule TAKE 1 ORAL CAPSULE ONCE A DAY WITH 100 MG CAPSULE TO EQUAL 250 MG DAILY 5 Active gabapentin (NEURONTIN) 300 MG capsule Take 2 capsules (600 mg total) by mouth 3 (three) times daily. 4 Active levonorgestrel (MIRENA) 20 MCG/DAY IUD 1 08/16/19 26 Active omeprazole (PRILOSEC) 10 MG capsule Take by mouth 4 Active ondansetron (ZOFRAN) 8 MG tablet Take 1 tablet (8 mg total) by mouth. 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 Raynaud's phenomenon 04/09/2023 Overview (05/06/2024): Outside Source Comment: Last Assessment & Plan: - uncontrolled - ref to rheum for eval - trial on sildenafil daily - f/u in 3 mo Angular cheilitis 03/19/2023 Overview (05/06/2024): Outside Source Comment: Last Assessment & Plan: - unclear etiology but suspect fungal with frequent drooling at night due to remote sensing surveyor - tx with antifungal, if no improvement will switch to steroid vs nystatin. RLS (restless legs syndrome) 10/17/2022 History of bariatric surgery 09/28/2022 Degeneration of lumbar intervertebral disc 11/27 Trochanteric bursitis of left hip 11/27/2021 Osteoarthrosis 08/01/2021 MIGUEL (generalized anxiety disorder) 07/10/2021 Overview (05/06/2024): Outside Source Comment: Last Assessment & Plan: - stable - continue current medication Gastroesophageal reflux disease 03/17/2021 Overview (05/06/2024): Outside Source Comment: Last Assessment & Plan: - stable - continue current medication Disorder of sacroiliac joint 12/26/2020 Overview (05/06/2024): Outside Source Comment: Last Assessment & Plan: - uncontrolled - continue robaxin - add gabapentin - start at night, can increase to bid or 600mg qhs - ref to PT Cervical radiculopathy 04/11/2020 Overview (05/06/2024): Outside Source Comment: Last Assessment & Plan: - discussed risks of high dose of flexeril above FDA approved dose - rec stopping flexeril and start robaxin 500mg qid - f/u in 3-6 mo Temporomandibular joint disorder 02/29/2020 Overview (05/06/2024): Outside Source Comment: Last Assessment & Plan: - stable - continue current medication Classical migraine with intractable migraine Overview (05/06/2024): Outside Source Comment: Last Assessment & Plan: - stable - continue current medication Chronic midline low back pain without sciatica 0 09/30/2019 Overview (05/06/2024): Outside Source Comment: Last Assessment & Plan: - stable - continue current medication but consider switch to pregabalin if continues to have grogginess Vitamin D deficiency 12/24/2013 Overview (05/06/2024): Outside Source Comment: Overview: Vitamin D deficiency Allergic rhinitis 07/04/2013 Overview (05/06/2024): Allergic rhinitis Depression 05/01/2012 Overview (05/06/2024): Outside Source Comment: Overview: Depression Last Assessment & Plan: - stable - continue current medication Attention deficit disorder 07/10/2010 Overview (05/06/2024): ADD (attention deficit disorder) Social History Tobacco Use Types Packs/Day Years Used Date Smoking Tobacco: Never Smokeless Tobacco: Never Tobacco Cessation:Counseling Given: No PHQ-2 Answer Date Recorded Patient Health Questionnaire-2 Score 0 05/11/2024 Comments Unknown Sex and Gender Information Value Date Recorded Sex Assigned at Female 05/11/2024 1:11 PM CDT Legal Sex Female 1:31 PM 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 ANALYST Gender Identity Not on file Sexual Orientation Not on file Last Filed Vital Signs Vital Sign Reading Time Taken Comments Blood Pressure 114/84 08/06/2024 3:05 PM CDT Pulse 78 08/06/2024 3:05 PM CDT Temperature 37.1 C (98.7 F) 08/06/2024 3:05 PM CDT Respiratory Rate - - Oxygen Saturation - - Inhaled Oxygen Concentration - - Weight 72.6 kg (160 lb) 08/06/2024 3:05 PM CDT Height 157.5 cm (5' 2) 08/06/2024 3:05 PM CDT Body Mass Index 29.26 08/06/2024 3:05 PM CDT Plan of Treatment Health Maintenance Due Date Last Done Comments Cervical Cancer Screening Pap Smear (Age 30 to 64) Every 3 Years 1984 Annual Physical 02/03/1987 Hepatitis C 02/03/2002 HPV Vaccines (3 - 3-dose series) 03/30/2010 01/05/2010, 12/02/2009, 01/21/2009 Cervical Cancer Screening Pap with HPV Testing (Age 30 to 64) Every 5 Years 02/03/2014 Cervical Cancer Screening with HPV 02/03/2014 DTaP, Tdap and Td Vaccines (4 - Td or Tdap) 02/18/2021 02/18/2011, 01/21/2009, 02/19/2008 COVID-19 Vaccine (5 - season) 2024 12/20/2023, 01/31/2021, 04/13/2020, Additional history exists Influenza Adult (#1) 2024 12/20/2023, 01/08/2023, 12/26/2020, Additional history exists Mammogram Screening 05/21/2026 05/21/2024, 6 Hepatitis A Vaccines Aged Out 06/08/2010, 12/03/19 10 No longer eligible based on patient's age to complete this topic Hepatitis B Vaccines Completed 06/08/2010, 01/05/2010, 12/02/2009 PHQ-2 (Physician [place]) Completed 05/11/2024 Meningococcal B Vaccine Aged Out No l onger eligible based on patient's age to complete this topic Meningococcal Vaccine Aged Out No vinicius sneha eligible based on patient's age to complete this topic Pneumococcal Vaccine: Pediatrics (0 to 5 Years) and At-Risk Patients (6 to 49 Years) Aged Out No longer eligible based on patient's age to complete this topic RSV Immunizations Under 20 Months Aged Out No longer eligible based on patient's age to complete this topic Insurance [facility] Care Teams Career Development Specialist Relationship Specialty Start Date End Date Gabriel Rodriguez MD PCP - General FAMILY PRACTICE 01/28/24
--- OUTSIDE RECORDS SUMMARY | 2025-01-27 20:43 | XMS_ITS | Patient Health Record ---
Author Organization [facility] [employer] [place] ([address]) Address [address] [place] [address] Care Team Providers Care Mandrel Cleaner Name Role Phone Gabriel Desai Primary Care Provider Dr. Krish Kirby Unavailable [phone] Isaiah Donohue Unavailable Unavailable Kalpana Tabares Unavailable [phone] Allergies No Known Allergies Reason For Referral No Information Medications Medication SIG (Take, Route, Frequency, Duration) Notes Start Date End Date Status Viagra 25 MG 1 tab(s) orally once a day Active Progesterone 100 MG 1 INS intravaginally 3 times a day Active Methocarbamol 500 MG 2 tab(s) orally 4 times a day Active Ondansetron 4 MG 1 tab Orally Once a day; Duration: 30 days As needed 08/27/2023 Active DIVIGEL 1.25 MG/PACKET 1.25 MG/1.25 G (0.1%) 1 EA TRANSDERMALLY ONCE A DAY *Please review for potential replacement for e-prescription and drug interaction check* Active Qulipta 60 MG 1 tab(s) orally once a day; Duration: 30 days 05/29/2023 Active Cyclobenzaprine HCl 10 MG 1 tab(s) orally 3 times a day Active fluvoxaMINE Maleate 150 MG 1 CAP(S) ORALLY ONCE A DAY (AT BEDTIME) *Please review and pick correct strength-formulat ion from Medispan options. If intended option is not shown, discontinue and re-order from Quick Search* Active Strattera 60 MG 1 cap(s) orally once a day (in the morning) Active Pramipexole Dihydrochloride 0.5 MG 1 tab(s) orally nightly; Duration: 30 days 05/07/2023 Active Rizatriptan Benzoate 10 MG 1 tab(s) orally once a day Active Ubrelvy 100 MG 1 tab(s) orally 2 times a day; Duration: 30 days 07/24/2023 Active Naltrexone HCl 50 MG 1.25 mg daily orall y once a day Active Gabapentin 300 MG 1 in am, 2 in pm orally as directed Active Social History Tobacco Use: Social History Observation Description Date Details (start date - stop date) Former Smoker NA - NA Smoking Smart Form: Question Answer Notes Are you a: former smoker Additional Findings:Tobacco Non-User Ex-moderate cigarette smoker (10-/day) Problems Problem Type SNOMED Code ICD Code Onset Dates Problem Status W/U Status Risk Notes Problem Restless legs syndrome (28514220) Restless legs syndrome (G25.81) Active confirmed Problem Chronic migraine without aura, non-refractor y (disorder) (683663395911 100) Migraine without aura, not intractable, without status migrainosus (G43.009) Active confirmed Problem Migraine with aura (3321287) Migraine with aura, not intractable, without status migrainosus (G43.109) Active confirmed Problem Chronic migraine without aura, non-intractab le (231727401146 100) Chronic migraine without aura, not intractable, without status migrainosus (G43.709) Active confirmed Problem Drug induced headache (734125594646 104) Drug-induced headache, not elsewhere classified, not intractable (G44.40) Active confirmed Encounters Encounter Location Date Provider Diagnosis BRITT Conner[address] [address] 05/12/2024 Krish Diaz Chronic migraine w ithout aura, not intractable, without status migrainosus G43.709 [address] [place] [address] 05/10/2024 Krish [address] [place] [address] 04/20/2024 Krish Diaz Chronic migraine w ithout aura, not intractable, without status migrainosus G43.709 [facility] [address] [place] [address] [facility] [address] [place] [address] 03/16/2024 Krish REY [facility] [address] [place] [address] 03/08/2024 Krish Diaz Assessments Encounter Date Diagnosis (ICD Code) Assessment Notes Treatment Notes Treatment Clinical Notes Section Notes 05/12/2024 Chronic migraine without aura, not intractable, without status migrainosus (ICD-10 - G43.709) 04/20/2024 Chronic migraine without aura, not intractable, without status migrainosus (ICD-10 - G43.709) Plan Of Treatment No Information Insurance Providers Payer Name Payer Address Payer Phone Subscriber Number Group Number Insured Name Patient Relationship to Insured Coverage Start Date Coverage End Date [facility] [place] [address] [id number] Mckinney-Ther os, Livia Self - patient is the insured Medical (General) History Medical History History ICD Code Migraine Depression Obesity Premature ovarian failure TMJ Lumbar DDD Surgical History Surgery Date(Month/Year) Gastric bypass 09/29/2021 Jaw arthrocentesis 05/19/2022 Jaw arthrocentesis 02/18/2021 Jaw arthrocentesis 09/18/2020 Knee meniscus repair 01/07/2009 Tonsil and andoids 04/18/2006 [place] teeth removal 04/18/2005 Hospitalization History Reason Date(Month/Year) Gastric bypass complications 10/06/2021
--- OUTSIDE RECORDS SUMMARY | 2025-01-27 20:43 | XMS_ITS | Encounter Summary ---
Author Organization [facility] Healthcare Address [address] [place] [address] Care Team Providers Care Travel Manager Name Role Phone Dunia Simons MD Unavailable [phone] Dunia Simons MD Unavailable [phone] Darshan Suarez MD Primary Care Provider [phone] Encounter Details Date Type Department Care Team ([facility] st Contact Info) Description 01/27/2025 Orders Only [facility] Medical Group Obstetrical Gynecology [address] [address] Tushar Murry MD [address] [address] Social History Tobacco Use Types Packs/Day Years [...] on file Legal Sex Female 2:09 AM TEMPORARY HELP AGENCY REFERRAL CLERK Gender Identity Female 03/28/2019 8:27 PM TEMPORARY HELP AGENCY REFERRAL CLERK Sexual Orientation Choose not to disclose 2023 10:08 AM CDT 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 Not on file documented as of this encounter Ordered Prescriptions Prescription Sig Dispense Quantity Refills Last Filled Start Date End Date estradioL (CLIMARA) 0.05 mg/[address] 1 patch on the skin once a week for 7 days 4 patch 11 01/27/2025 testosterone 50 mg/5 gram (1 %) Apply 0.5g of gel (transdermal 1% testosterone gel) topically to skin daily; make sure gel is well rubbed in to skin 150 g 1 01/27/2025 documented in this encounter Plan of Treatment Not on file documented as of this encounter Visit Diagnoses Not on filedocumented in this encounter Discontinued Medications Medication Sig Discontinue Reason Start Date End Da te estradioL (CLIMARA) 0.05 mg/[address] 1 patch on the skin once a week for 7 days Reorder 12/09/2024 01/27/2025 testosterone 50 mg/5 gram (1 %) Apply 5mg (testosterone)/0.5g (transdermal 1% gel) topically to skin daily; make sure gel is well rubbed in to skin Reorder 01/27/2025 01/27/2025 documented as of this encounter Care Teams Travel Manager Relationship Specialty Start Date End Date Darshan Suarez MD [address] [phone] PCP - General Family Medicine 06/29/24 Dunia Simons MD [address] [facility] [address] [place] [address] 08/27/19 Dunia Simons MD [address] [address] 01/06/19 documented as of this encounter
--- OUTSIDE RECORDS SUMMARY | 2025-01-27 20:43 | XMS_ITS | Encounter Summary ---
Author Organization [facility] Healthcare Address [address] [place] [address] Care Team Providers Care Electronic Assembler Group Leader Name Role Phone Dunia Simons MD Unavailable [phone] Dunia Simons MD Unavailable [phone] Darshan Suarez MD Primary Care Provider [phone] Encounter Details Date Type Department Care Team ([facility] st Contact Info) Description 01/27/2025 Orders Only [facility] Medical Group Obstetrical Gynecology [address] [address] Tushar Murry MD [address] [address] Social History Tobacco Use Types [...] on file Legal Sex Female 2:09 AM DIRECTOR OF DEVELOPMENT Gender Identity Female 03/28/2019 8:27 PM DIRECTOR OF DEVELOPMENT Sexual Orientation Choose not to disclose 2023 10:08 AM CDT 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 Not on file documented as of this encounter Ordered Prescriptions Prescription Sig Dispense Quantity Refills Last Filled Start Date End Date testosterone 50 mg/5 gram (1 %) Apply [...] Discontinue Reason Start Date End Da te testosterone 50 mg/5 gram (1 %) Apply 5mg (testosterone)/0.5g (transdermal 1% gel) topically to skin daily; make sure gel is well rubbed in to skin Reorder 12/21/2024 01/27/2025 documented as of this encounter Care Teams Electronic Assembler Group Leader Relationship Specialty Start Date End Date Darshan Suarez MD [address] [phone] PCP - General Family Medicine 06/29/24 Dunia Simons MD [address] [facility] [address] [place] [address] 08/27/19 Dunia Simons MD [address] [facility] [address] [place] [address] 01/06/19 documented as of this encounter
--- OUTSIDE RECORDS SUMMARY | 2025-01-27 20:43 | XMS_ITS | Encounter Summary ---
Author Organization [facility] Address [address] [place] [address] Phone Care Team Providers Care Drop Wire Aliner Name Role Phone Dunia Simons MD Unavailable [phone] Dunia Simons MD Unavailable [phone] Darshan Suarez MD Primary Care Provider [phone] Encounter Details Date Type Department Care Team (Latest Contact Info) Description 11/26/2024 Results Follow-Up [facility] [address] [facility] [address], [address] [place] [address] Krish Skinner MD [address] [place] [address] C. 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 Not on file documented as of this encounter Functional Status * BP Location Answer Date of Assessment Author Left arm 12/09/2024 11:38 AM CDT Doug Ríos MA * BP Location Answer Date of Assessment Author Left arm 12/09/2024 11:38 AM CDT Doug Ríos MA documented as of this encounter Plan of Treatment Not on file documented as of this encounter Visit Diagnoses Not on filedocumented in this encounter Care Teams Drop Wire Aliner Relationship Specialty Start Date End Date Darshan Suarez MD [address] [address] PCP - General Family Medicine 06/29/24 Dunia Simons MD [address] [facility] [address] [place] [address] 08/27/19 Dunia Simons MD [address] [facility] [address] [place] [address] 01/06/19 documented as of this encounter
--- OUTSIDE RECORDS SUMMARY | 2025-01-27 20:43 | XMS_ITS | Encounter Summary ---
Author Organization [facility] Address [address] [place] [address] Care Team Providers Care Cloth Bleaching Supervisor Name Role Phone Dunia Simons MD Unavailable [phone] Dunia Simons MD Unavailable [phone] Brett Jimenez MD Primary Care Provider + Darshan Suarez MD Primary Care Provider [phone] Encounter Details Date Type Department Care Team (Late st Contact Info) Description 09/30/2021 Documentation [facility] Surgeon [address] [place] [address] Main Chaves MD [address] [place] [address] Social History Tobacco Use Types Packs/Day Years Used Date Smoking Tobacco: Former Cigarettes 0.5 5 0 05/20/2007 - 05/19/2012 Smokeless Tobacco: Never Alcohol Use Standard Drinks/Week Comments Yes 3 (1 standard drink = 0.6 oz pur e alcohol) AUDIT-C Answer Date Recorded Q1: How often do you have a drink containing alc ohol? 2-4 times a month 10/02/2021 Q2: How many drinks containi ng alcohol do you have on a typical day when you are drinking? 1 or 2 10/02/2021 Q3: How often do you have si x or more drinks on one occasion? 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 Not on file documented as of this encounter Functional Status * Question Answer Date of Assessment Author BP Location Right arm 10/03/2021 7:50 PM CDT Marlin Oates RN BP Method Automatic 10/03/2021 7:50 PM CDT Marlin Oates RN MAP (mmHg) 68 10/03/2021 11:30 PM CDT Marlin Madrid RN * Cobb Fall Risk Question Answer Date of Assessment Author History of Falling 0 10/03/2021 8:55 PM CDT Whitley Alvarez RN Secondary Diagnosis 15 10/03/2021 8:55 PM CD Whitley Michaels RN Ambulatory Aids 0 10/03/2021 8:55 PM CDT Whitley Oliveros RN Intravenous Therapy/Heparin/Saline Lock 20 10/03/2021 8:55 PM CDT Van Alvarez RN Gait/Transferring 0 10/03/2021 8:55 PM CDT Whitley Alvarez RN Mental Status 0 10/03/2021 8:55 PM CDT Whitley Crow RN Cobb Fall Risk Score (Score >= 45 places fall precaution order) 35 10/03/2021 8:55 PM CDT Whitley Alvarez RN Prior Fall Event (Autopopulated from EMR) None found 10/03/2021 8:55 PM CDT Whitley Alvarez RN * Kendall Scale Question Answer Date of Assessment Author Sensory Perceptions 4 10/03/2021 9:00 PM Whitley Rogers RN Moisture 4 10/03/2021 9:00 PM CDT Whitley Bañuelos RN Activity 3 10/03/2021 9:00 PM CDT Whitley Bañuelos RN Mobility 3 10/03/2021 9:00 PM PANCHITOT Whitley Bañuelos RN Nutrition 3 10/03/2021 9:00 PM CDT Whitley Bañuelos RN Friction and Shear 3 10/03/2021 9:00 PM CDT Whitley Alvarez RN Kendall Scale Score 20 10/03/2021 9:00 PM CDT Whitley Alvarez RN * Fall Risk Interventions Question Answer Date of Assessment Author All Low Fall Interventions Applied Yes 10/03/2021 8:55 PM CDWhitley Michaels RN All Moderate Fall Interventions Applied No 10/03/2021 8:55 PM CDT Whitley Alvarez RN All Moderate Fall Risk Interventions EXCEPT: PT eval requested or obtained;OT eval requested or obtained 10/03/2021 8:55 PM CDT Whitley Alvarez RN All High Fall Risk Interventions Applied No 10/03/2021 8:40 AM CDT Floresita Salinas RN All High Risk Interventions EXCEPT: Bed alarm;Chair alarm 10/03/2021 8:40 AM CDT Floresita Salinas RN Reason For Exception(s) per orders 10/04/19 22 8:55 PM PANCHITOT Whitley Alvarez RN Reason For Exception(s) indpendent A&Ox4 022 8:40 AM CDT Floresita Salinas RN * B.M.A.T. - Bedside Mobility Assessment Tool for Nurses Question Answer Date of Assessment Author Is patient able to participate in the BMAT? Yes 10/03/2021 8:55 PM Whitley Chow RN BMAT Level Level 4 - Green 10/03/2021 8:55 PM CDT Whitley Oliveros RN * Question Answer Date of Assessment Author 1. Has the patient self-repo rted, presented with clinical signs of, or have a documented history of any of the following within the past 30 days? No 10/02/2021 9:[address] RN * Question Answer Date of Assessment Author Is the patient being treated today because it is known or suspected that they prepared, started, or tried to end their life? No 10/02/2021 8:[address], [place] * Question Answer Date of Assessment Author 1. In the past month, have y ou wished you were or that you could go to sleep and not wake up? No 10/02/2021 8:32 AM PANCHITOT Dory Goldsmith, ISABEL 2. In the past month, have y ou actually had any thoughts of killing yourself? No 10/02/2021 8:[address], [place] 6. Have you ever done anythi ng, started to do anything, or prepared to do anything to end your life? No 10/02/2021 8:32 AM CDT Dory Newman RN * Suicide Risk Level Answer Date of Assessment Author No risk level 10/02/2021 8:[address] RN * Self-Injurious Risk Level Answer Date of Assessment Author No risk level 10/02/2021 9:[address] RN * Pressure Injury Prevention Question Answer Date of Assessment Author Pressure Ulcer Prevention Interventions Keep skin clean and dry (Sensory Perception/Moisture ) 10/03/2021 8:40 AM PANCHITOT Floresita Salinas RN 2 Nurse Skin Assessment ISABEL Galdamez 10/02/2021 4:00 AM CDT Em Wilson RN * AUDIT-C Score Answer Date of Assessment Author 2 10/02/2021 8:[address] RN * Alcohol Use Question Answer Date of Assessment Author Q1: How often do you have a drink containing alcohol? 2-4 times a month 10/02/2021 8:50 AM Dory Aguiar, ISABEL Q2: How many drinks containing alcohol do you have on a typical day when you are drinking? 1 or 2 10/02/2021 8:50 AM Dory Aguiar, ISABEL Q3: How often do you have six or more drinks on one occasion? Never 10/02/2021 8:50 AM Dory Aguiar RN * Fall Risk Assessment Tool - MEDFRAT Question Answer Date of Assessment Author Prior Fall Event (Autopopulated from EMR) None found 10/01/2021 6:51 PM PANCHITOT Sherman Vargas RN History of falling in last 3 months, including since admission 0 10/01/2021 6:51 PM PANCHITOT Dianna Vargas Ma, RN Confusion or disorientation 0 10/01/2021 6: 51 PM PANCHITOT Dianna Vargas RN Intoxicated or sedated 0 10/01/2021 6:51 PM PANCHITOT Dianna Vargas RN Impaired gait 0 10/01/2021 6:51 PM CDT Dianna oDwney RN Mobility assist device used 0 10/01/2021 6: 51 PM Dianna Easley RN Altered elimination 0 10/01/2021 6:51 PM Dianna Rizo RN Fall risk score: (1-2 low risk), (3-4 moderate risk), (5 or more high risk) 0 10/01/2021 6:51 PM PANCHITOT Dianna Vargas RN * Integumentary Question Answer Date of Assessment Author Skin Color Appropriate for ethnicity 10/03/2021 9:00 PM Whitley Chow RN Skin Condition/Temp Warm;Dry 10/03/2021 9:00 PM Whitley Rogers RN Skin Integrity Surgical incision 10/03/2021 9:00 PM Whitley Rogers RN Skin Turgor Non-tenting 10/03/2021 9:00 PM PANCHITOT Whitley Bañuelos RN Integumentary (WDL) X 10/03/2021 9:00 PM Whitley Rogers RN Skin Location abdomen x 4 10/03/2021 9:00 PM CDT Whitley Crow RN * Wound (LDAs) Question Answer Date of Assessment Author Type of Wound (LDA) Surgical site 10/03/2021 8:40 AM Floresita Engel RN * Question Answer Date of Assessment Author BP Location Right arm 10/03/2021 7:50 PM CDT Marlin Oates RN BP Method Automatic 10/03/2021 7:50 PM CDT Marlin Oates RN * Question Answer Date of Assessment Author Affect Flat 09/30/2021 8:50 AM CDT Lynda Kaiser RN Mood Labile 09/30/2021 8:50 AM CDT Lynda Kaiser RN * Question Answer Date of Assessment Author Percent Meal Eaten (%) 25 10/02/2021 6:15 P M Lizy Bailon RN Percent Snack Eaten (%) 100 10/02/2021 3:10 P M Lizy Bailon RN * Question Answer Date of Assessment Author Bed In Lowest Position Yes 10/03/2021 8:55 PM PANCHITOT Whitley Alvarez RN Bed Wheels Locked Yes 10/03/2021 8:55 PM PANCHITOT Whitley Alvarez RN * Fall Risk Interventions Question Answer Date of Assessment Author All Low Fall Interventions Applied Yes 10/03/2021 8:55 PM Whitley Chow RN All Moderate Fall Interventions Applied No 10/03/2021 8:55 PM PANCHITOT Whitley Alvarez RN All Moderate Fall Risk Interventions EXCEPT: PT eval requested or obtained;OT eval requested or obtained 10/03/2021 8:55 PM PANCHITOT Whitley Alvarez RN All High Fall Risk Interventions Applied No 10/03/2021 8:40 AM PANCHITOT Floresita Salinas RN All High Risk Interventions EXCEPT: Bed alarm;Chair alarm 10/03/2021 8:40 AM PANCHITOT Floresita Salinas RN Reason For Exception(s) per orders 10/04/19 22 8:55 PM CDT Whitley Alvarez RN Reason For Exception(s) indpendent A&Ox4 022 8:40 AM CDT Floresita Salinas RN * Question Answer Date of Assessment Author Oral Care Teeth brushed 09/30/2021 11:00 AM PANCHITOT Lynda Kaiser RN Hygiene Level of Assistance Independent 10/02/2021 8:35 AM Lizy Bailon, ISABEL Linens Complete linen change 10/02/2021 7:00 PM PANCHITOT Lizy Hilton, ISABEL Bath Bathed/showered non- chg (CHG not indicated OR not required here) 10/03/2021 8:40 AM Floresita Campuzano RN * ADL Screening Question Answer Date of Assessment Author Patient's Vision Adequate to Safely Complete Daily Activities Yes 10/02/2021 8:32 AM Lizy Bailon RN Patient's Judgement Adequate to Safely Complete Daily Activities Yes 10/02/2021 8:32 AM Kat Bailon RN Patient's Memory Adequate to Safely Complete Daily Activities Yes 10/02/2021 8:32 AM Lizy Bailon RN Patient Able to Express Needs/Desires Yes 10/02/2021 8:32 AM Lizy Bailon RN Dressing Independent 10/02/2021 8:32 AM Lizy Bailon RN Grooming Independent 10/02/2021 8:32 AM Lizy Bailon RN Feeding Independent 10/02/2021 8:32 AM Lizy Bailon RN Bathing Independent 10/02/2021 8:32 AM Lizy Bailon, ISABEL Toileting Independent 10/02/2021 8:32 AM Lizy Bailon RN In/Out Bed Independent 10/02/2021 8:32 AM Lizy Bailon, ISABEL Walks in Home Independent 10/02/2021 8:32 AM Lizy Bailon, ISABEL Weakness of Legs None 10/02/2021 8:32 AM Lizy Vasquez, IS[place]EL Weakness of Arms/Hands None 10/02/2021 8:32 AM Lizy Bailon, ISABEL Hearing - Right Ear Functional 10/02/2021 8:32 AM Lizy Thomas RN Hearing - Left Ear Functional 10/02/2021 8:32 AM Lizy Bailon RN Dominant hand? Right 10/02/2021 8:32 AM Lizy Bowser RN Decline in ADLs in last 2 weeks? No 10/02/2021 8:32 AM CDT Lizy Hilton, ISABEL * Therapy Consults Question Answer Date of Assessment Author PT Evaluation Needed 2 10/02/2021 4:00 AM C Em Garcia, ISABEL OT Evaluation Needed 2 10/02/2021 4:00 AM Em Merida, ISABEL CAROUSEL OPERATOR Evaluation Needed 2 10/02/2021 4:00 AM CDT Em Wilson, ISABEL * Assistive Devices Question Answer Date of Assessment Author Assistive Devices/DME None 10/02/2021 8:32 AM CDT Lizy Hilton, ISABEL * Nutrition Question Answer Date of Assessment Author Feeding Level of Assistance Able to feed self 10/03/2021 8:55 PM CDT Whitley Alvarez , ISABEL documented as of this encounter Mental Status * Question Answer Entry Date Author Level of Consciousness Alert;Awake 3:40 PM CDT Lynda Kaiser RN Orientation Oriented X4 (person, place, time, situation) 09/30/2021 3:40 PM CDT Lynda Kaiser RN * Question Answer Entry Date Author Neuro ([facility] 10/03/2021 12:41 AM CDT Lynda Saldaña RN * Question Answer Entry Date Author Neuro ([facility]) [facility] 10/03/2021 9:00 PM CDT Whitley Bañuelos RN * Short Blessed Test Question Answer Entry Date Author What year is it now? 0 09/30/2021 9:34 AM CDT Jessica Willis OT What month is it now? 0 09/30/2021 9:34 AM CDT Jessica Willis OT Without looking at the clock, tell me what time it is 0 09/30/2021 9:34 AM CDT Jessica Willis OT Count aloud backwards from 20-1 0 09/30/2021 9:34 AM CDT Jessica Willis OT Say the months of the year backwards in reverse order 0 09/30/2021 9:34 AM CDT Jessica Willis OT Repeat the name and address I asked you to remember 0 09/30/2021 9:34 AM CDT Jessica Willis OT Repeat this name and address after me Anson Nelson [address] [place] [address] 09/30/2021 9:34 AM CDT Jessica Willis OT Short Blessed Total Score 0 2021 9:34 AM CDT Jessica Willis OT Short Blessed Comments WNL 9:34 AM CDT Jessica Willis OT documented in this encounter Plan of Treatment [...] documented as of this encounter Care Teams Cloth Bleaching Supervisor Relationship Specialty Start Date End Date Brett Jimenez MD [facility] [address] [place] [address] PCP - General Family Medicine 05/20/24 06/28/24 Darshan Suarez MD [address] [facility] [address] [place] [address] PCP - General Family Medicine 06/29/24 Dunia Simons MD [address] [place] [address] 08/27/19 Dunia Simons MD [address] [place] [address] 01/06/19 documented as of this encounter
== END 2025-01-27 16:08 | disposition home or self-care (01) ==
PROVIDERS: Emergency Provider Nurse Practitioner; PCP Family Medicine
DX: N89.8 Other specified noninflammatory disorders of vagina (principal)
CPT/HCPCS: 99213; G0463